=== PATIENT | female | born 1955 | race Caucasian/White ===

== ENCOUNTER 2019-05-10 15:41 | Outpatient (CLI) | payer MEDICARE ==
--- NOTE | 2019-06-07 15:13 | MMO ---
Bilateral MAMMO Bilat Screen [facility]. CLINICAL HISTORY: Patient is 63 years old and is seen for screening. The patient has the following family history of breast cancer: maternal grandmother, malignant (generic). The patient has no personal history of cancer. The patient has a history of right Excisional Biopsy more than 10 years ago - benign. VIEWS: The views performed were: bilateral craniocaudal with tomosynthesis and bilateral mediolateral oblique with tomosynthesis. This study has been interpreted with the assistance of computer-aided detection. MAMMOGRAM FINDINGS: There are scattered fibroglandular densities. There are benign appearing calcifications seen in both breasts. There are also vascular calcifications. There are no suspicious masses, suspicious calcifications, or new areas of architectural distortion. IMPRESSION: THERE IS NO MAMMOGRAPHIC EVIDENCE OF MALIGNANCY. A ROUTINE FOLLOW-UP MAMMOGRAM IN 1 YEAR IS RECOMMENDED. THE RESULTS OF THIS EXAM WERE SENT TO THE PATIENT. ACR BI-RADS Category 2 - Benign finding MAMMOGRAPHY NOTE: 1. A negative mammogram report should not delay a biopsy if a dominant of clinically suspicious mass is present. 2. Approximately 10% to 15% of breast cancers are not detected by mammography. 3. Adenosis and dense breasts may obscure an underlying neoplasm. Reported by: YUMI JACOBO MD Electonically Signed: [id number]
== END 2019-05-10 15:42 | disposition home or self-care (01) ==
LOC: BICMAMMO 15:41
PROVIDERS: ATTEND Family Medicine
DX: Z12.31 Encounter for screening mammogram for malignant neoplasm of breast (principal); Z80.3 Family history of malignant neoplasm of breast; Z91.89 Other specified personal risk factors, not elsewhere classified
CPT/HCPCS: 77063; 77067

== ENCOUNTER 2019-09-05 12:04 | Inpatient (IN) | payer MEDICARE ==
[2019-09-05 12:47] LABS: #Lymphocytes 0.8 thou/uL (1.20-3.40); #Monocytes 0.5 thou/uL (0.11-0.59); #Neutrophils 5.1 thou/uL (1.40-6.50); %Basophils 0.3 % (0.0-1.0); %Eosinophils 0.5 % (0.0-10.0); %Lymphocytes 12.2 % (21.0-51.0); %Monocytes 7.4 % (0.0-10.0); %Neutrophils 79.6 % (42.0-75.0); Hemoglobin 11.3 g/dL (12.0-16.0); Mean Corpuscular Hemoglobin 33.5 pg (27.0-31.0); Mean Platelet Volume 10.4 fL (7.4-10.4); Platelet Count 89 thou/uL (130-400); RBC Distribution Width 15.8 % (11.5-14.5); Red Blood Cell (RBC) Count 3.39 mill/uL (4.20-5.40); White Blood Cell (WBC) Count 6.4 thou/uL (4.8-10.8)
[2019-09-05 12:58] LABS: ALT (SGPT) 56 U/L (8-55); AST (SGOT) 170 U/L (5-34); Albumin 2.3 g/dL (3.4-4.8); Alkaline Phosphatase 362 U/L (40-110); Anion Gap 15 mmol/L (10-20); BUN (Urea Nitrogen) 17 mg/dL (9.8-20.1); Calc. Creatinine Clearance 0 mL/min (70-130); Calcium 10.6 mg/dL (7.8-10.44); Carbon Dioxide 30 mmol/L (23-31); Chloride 96 mmol/L (98-107); Estimated GFR-MDRD 21; Globulin 5.1 g/dL (2.4-3.5); Glucose 167 mg/dL (80-115); Lipase 74 U/L (8-78); Potassium 2.7 mmol/L (3.5-5.1); Protein, Total 7.4 g/dL (6.0-8.3); Sodium 138 mmol/L (136-145)
[2019-09-05 12:59] LABS: MDiff Complete? YES; Macrocytosis MODERATE=16-30 cells (100X) (0-5/hpf); Platelet Morphology Comment Appears Decreased; Polychromasia SLIGHT = 2-3 cells (100X) (0-2/hpf); Rouleaux Formation SLIGHT = 1-5 cells (100X) (None Seen); Target Cells SLIGHT = 2-5 cells (100X) (0-1/hpf)
[2019-09-05 13:04] LABS: Bilirubin, Total 29.1 mg/dL (0.2-1.2)
--- NOTE | 2019-09-05 13:05 | RAD ---
CHEST 1 VIEW: Date: 09/05/2019 HISTORY: Weakness, dizziness, intermittent shortness of breath. COMPARISON: 11/03/2016. FINDINGS: Heart size is normal. The lungs are clear. No confluent pneumonia, overt edema, or pleural effusion. IMPRESSION: No significant acute intrathoracic disease. Stable from prior study. POS: TPC
[2019-09-05] MEDS ORDERED: Cefepime 2 GM VIAL ONE (13:14)
[2019-09-05 13:16] LABS: CKMB 1.3 ng/mL (0-6.6)
[2019-09-05 14:19] LABS: Bilirubin Large (Negative); Blood, Urine Small (Negative); Glucose, Urine (Dipstick) 100 mg/dL (Negative); Leukocyte Trace (Negative); Nitrite Negative (Negative); Protein, Urine (Dipstick) 100 mg/dL (Neg-Trace)
--- NOTE | 2019-09-05 14:19 | CT ---
EXAM: ABDOMEN AND PELVIC CT SCAN WITHOUT IV CONTRAST: 09/05/19 HISTORY: Abdominal pain, weakness, dizziness, shortness of breath. COMPARISON: 10/18/18. FINDINGS: Linear stranding in the lung bases with some subpleural opacity changes probably in part related to dependent positioning. Fatty changes in the liver with borderline liver size. Minimal splenomegaly at 15 cm. Abnormally dila paxton left upper quadrant varices including a splenorenal shunt as well as some perigastric varices edith dence for portal hypertension. Small amount of ascites with some scattered diffuse omental fat strand ing. Somewhat distended gallbladder without gallstones or wall thickening or pericholecystic fat stra nding, stable from prior study. Evidence for an abdominal aortic aneurysm measuring 4.6 cm in size. N umerous bilateral renal calculi. 3.2 cm right renal cyst. No significant hydronephrosis although ther e appears to be a nonobstructing calculus, 0.5 x 0.8 cm in the left ureterovesicular junction region. No CT evidence for appendicitis. Stable fatty mass positioned somewhat in between the right gluteus minimus and gluteus medius muscles. There is some ectatic changes of the aortic bifurcation and pro ximal common iliac arteries bilaterally up to 2 cm of the left common iliac artery. IMPRESSION: 4.6 cm diameter abdominal aortic aneurysm, this appears minimally larger from the prior 10/18/18 study at which time it was approximately 4.3 cm in size. Numerous bilateral renal calculi. Nonobstructing left ureteral calculus at the ureterovesicular junction. Fatty liver with splenomegaly and evidence for portal hypertension and associated varices. Minimal as citic fluid as well as some omental fat stranding. Small fat containing umbilical hernia. Stable fatt y mass in the right gluteal muscle region. Other findings as above. POS: TPC
[2019-09-05 14:21] LABS: Clarity Clear (Clear)
[2019-09-05 14:23] LABS: Other Microscopic Description Less than 2 mL rec'd
[2019-09-05 15:26] LABS: INR-International Normal Ratio 1.7; PTT 40.8 SEC (22.9-36.1); Prothrombin Time 20.1 SEC (12.0-14.7)
[2019-09-05 16:10] LABS: Lactic Acid 2.3 mmol/L (0.5-2.2)
[2019-09-05 16:57] LABS: Troponin I 0.046 ng/mL (< 0.028)
[2019-09-05 18:25] VITALS: BMI 29.7
[2019-09-05 19:54] LABS: Troponin I 0.047 ng/mL (< 0.028)
[2019-09-05] MEDS ORDERED: Ondansetron ODT 4 MG TAB PO PRN (19:59)
--- NOTE | 2019-09-05 20:15 | PDOC.HHP ---
Hospitalist HPI - History of Present Illness weakness, jaundice History of Present Illness: This is a 64 year old female with history of alcoholism, hypertension who presented to the ER with jaundice. The patient's skin started turning yellow three weeks ago and it progressively got worst and her eyes turned icteric as well. She denies fevers or chills, but has been having decreased appetite and severe weakness with inability to get out of bed. This morning when the son made her eat, she vomited. She denies any abdominal pain. She denies constipation but had one loose stool today. She has been having painful urination for the past three weeks and red urine. . She reports history of hepatitis C in the past that was treated and cleared. She drinks one quart of alcohol daily for the past one year. The patient also reports having a pruritic rash all over her body for months and was on multiple medications as well as steroid cream. Eventually they saw a interface engineer who performed a punch biopsy and told them that she was being overmedicated and to stop all of her medications except for three of them. Patient reports improvement in her rash since then. ED Course: The patient presented to the ER with normal vitals. Labs sohwed WBC 6.5, lactate of 4, potassium of 2.7. Bilirubin was noted to be 29, AST, ALT 56, ALP 362. She was given 2L of fluid, IV vancomycin and cefepime. Repeat lactate was 2.3. Hospitalist ROS - Review of Systems Constitutional: reports: sweats (chronic hot flashes from menopause). denies: fever, chills Eyes: reports: other (icterus) ENT: denies: ear pain, nose pain Respiratory: reports: cough (intermittent dry cough) Cardiovascular: denies: chest pain, palpitations, orthopnea Gastrointestinal: reports: nausea, vomiting (x1). denies: abdominal pain, diarrhea Genitourinary: reports: dysuria. denies: frequency Musculoskeletal: denies: neck pain, shoulder pain, arm pain Skin: reports: rash (skin rash all over body which has improved) Neurological: denies: weakness, numbness, other Hospitalist History - Past Medical History Other Medical History: Hepatitis C Hypetension Heart aneurysm Abdominal Aortic aneurysm Arthritis - Past Surgical History Other Surgical History: Knee replacement - Family History Other Family History: Cancer Liver disease ALcoholism - Social History Smoking Status: Current every day smoker (smokes 4 cigarettes a day for 40 years ) Alcohol: reports: Heavy (one quart of alcohol daily for one year) Drugs: reports: marijuana (former marijuana user, not in the past month) Living Situation: With Family Occupation: disabled - Exam General Appearance: NAD, awake alert Eye: scleral icterus ENT: normocephalic atraumatic, no oropharyngeal lesions Neck: no JVD Heart: RRR, no murmur, no gallops, no rubs Respiratory: CTAB, no wheezes, no rales, no ronchi Gastrointestinal: soft, non-tender, non-distended, normal bowel sounds Extremities: no cyanosis, no clubbing, no edema Skin - other findings: excoriation on back. Maculopapular rash all over body which is healing Neurological: cranial nerve grossly intact, normal sensation to touch, no focal deficits, no new deficit Hospitalist Results - Labs Result Diagrams: 09/05/19 12:22 09/05/19 12:22 Lab results: WBC 6.4 thou/uL (4.8-10.8) 09/05/19 12:22 Hgb 11.3 g/dL (12.0-16.0) L 09/05/19 12:22 Hct 35.4 % (36.0-47.0) L 09/05/19 12:22 MCV 105.0 fL (78.0-98.0) H 09/05/19 12:22 Plt Count 89 thou/uL (130-400) L 09/05/19 12:22 Neutrophils % 79.6 % (42.0-75.0) H 09/05/19 12:22 Sodium 138 mmol/L (136-145) 09/05/19 12:22 Potassium 2.7 mmol/L (3.5-5.1) L* 09/05/19 12:22 Chloride 96 mmol/L (98-107) L 09/05/19 12:22 Carbon Dioxide 30 mmol/L (23-31) 09/05/19 12:22 BUN 17 mg/dL (9.8-20.1) 09/05/19 12:22 Creatinine 2.34 mg/dL (0.6-1.1) H 09/05/19 12:22 Glucose 167 mg/dL (80-115) H 09/05/19 12:22 Lactic Acid 2.3 mmol/L (0.5-2.2) H 09/05/19 15:24 Calcium 10.6 mg/dL (7.8-10.44) H 09/05/19 12:22 Total Bilirubin 29.1 mg/dL (0.2-1.2) H 09/05/19 12:22 AST 170 U/L (5-34) H 09/05/19 12:22 ALT 56 U/L (8-55) H 09/05/19 12:22 Alkaline Phosphatase 362 U/L (40-110) H 09/05/19 12:22 CK-MB (CK-2) 1.3 ng/mL (0-6.6) 09/05/19 12:22 Troponin I 0.047 ng/mL (< 0.028) H 09/05/19 19:15 B-Natriuretic Peptide 92.3 pg/mL (0-100) 09/05/19 12:22 Serum Total Protein 7.4 g/dL (6.0-8.3) 09/05/19 12:22 Albumin 2.3 g/dL (3.4-4.8) L 09/05/19 12:22 Lipase 74 U/L (8-78) 09/05/19 12:22 Urine Ketones 15 mg/dL (Negative) A 09/05/19 14:01 Urine Blood Small (Negative) A 09/05/19 14:01 Urine Nitrite Negative (Negative) 09/05/19 14:01 Ur Leukocyte Esterase Trace (Negative) H 09/05/19 14:01 Hospitalist H&P A/P - Plan Plan: Chest X ray: no significant disease CT abdomen: 4.6 cm abdominal aortic aneurysm, larger from prior study. Numerous bilateral renal calculi. Fatty changes in the liver. Minimal splenomegaly. Let upper quadrant varices including splenorenal shunt and perigastric varices for portal hypretension. EKG: sinus tachycardia with PVCS This is a 64 year old female with past medical history of alcoholism, hypertension who presented to the ER with jaundice, weakness, poor appetite, found to have liver failure #Acute liver failure - likely secondary to alcoholism vs drug induced #Fatty liver with portal hypertension #Gastric varices #History of hepatitis C - treated - MELD score of 33 with > 52% mortality. CT abdomen showed fatty liver, portal hypertension, and varices. Will place GI consult #Dysuria - UA unremarkable, will check urine culture - s/p vanc and cefepime in the ER, will order IV ceftriaxone #Acute Kidney injury #Lactic acidosis - likely from severe dehydration. Had improvement with IV fluids - will give gentle hydration for 1L. Repeat labs tomorrow #Hypokalemia - potassium 2.7, will give 40 meq potassium and recheck #Abdominal aortic aneurysm - noted to be 4.[address] abdomen #Right gluteal mass - noted on CT scan . Not palpable on exam #Bilateral renal calculi #Right renal cyst - asymptomatic, outpatient follow up Code status: full code
[2019-09-05] MEDS: Sodium Chloride 0.9% 1,000 ML IV SCH (20:22)
[2019-09-05] MEDS ORDERED: Potassium Chloride 20 MEQ TAB PO SCH (20:30)
[2019-09-05] MEDS: traMADol HCl 50 MG TAB PO PRN (20:47)
[2019-09-06 03:47] LABS: Lactic Acid 1.4 mmol/L (0.5-2.2)
[2019-09-06 03:49] LABS: ALT (SGPT) 43 U/L (8-55); AST (SGOT) 127 U/L (5-34); Albumin 1.8 g/dL (3.4-4.8); Alkaline Phosphatase 283 U/L (40-110); Anion Gap 9 mmol/L (10-20); BUN (Urea Nitrogen) 17 mg/dL (9.8-20.1); Bilirubin, Total 24.1 mg/dL (0.2-1.2); Calc. Creatinine Clearance 42 mL/min (70-130); Calcium 8.4 mg/dL (7.8-10.44); Carbon Dioxide 25 mmol/L (23-31); Chloride 107 mmol/L (98-107); Estimated GFR-MDRD 28; Glucose 130 mg/dL (80-115); Potassium 3.3 mmol/L (3.5-5.1); Protein, Total 5.8 g/dL (6.0-8.3); Sodium 138 mmol/L (136-145)
[2019-09-06] MEDS: Sodium Chloride 0.9% 1,000 ML IV SCH ×2 (05:59→18:28)
[2019-09-06] MEDS: cefTRIAXone\\ROCEPHIN 1 GM in Sodium Chloride 0.9% 100 ML IVPB SCH (06:01)
[2019-09-06] MEDS ORDERED: Potassium Chloride 20 MEQ TAB PO SCH (09:30)
[2019-09-06] MEDS: Lorazepam 0.5 MG TAB PO PRN ×2 (09:53→21:18)
[2019-09-06] MEDS: traMADol HCl 50 MG TAB PO PRN ×2 (09:53→22:11)
[2019-09-06] MEDS ORDERED: Thiamine 100 MG TAB PO SCH (11:30)
[2019-09-06] MEDS: Thiamine 100 MG TAB PO SCH (12:06)
--- NOTE | 2019-09-06 14:36 | PDOC.HOSPP ---
- Subjective Encounter Date: 09/06/19 Encounter Time: 12:00 non-verbal Subjective: The patient is doing better. She has no abdominal pain, mild nausea. No shortness of breath or chest pain. She is drowsy and anxious per nursing staff , required some ativan this morning - Objective Vital Signs & Weight: Vital Signs (12 hours) Temp Pulse Ox 09/06/19 12:00 98.8 F 09/06/19 08:00 100 09/06/19 07:00 98.9 F 09/06/19 04:00 98.3 F Weight Weight 189 lb 13.088 oz Most Recent Monitor Data Heart Rate from ECG 106 NIBP 99/51 NIBP BP-Mean 67 Respiration from ECG 20 SpO2 99 I&O: 09/05/19 09/06/19 09/07/19 06:59 06:59 06:59 Intake Total 834 770 Output Total 0 300 Balance 834 470 Result Diagrams: 09/05/19 12:22 09/06/19 03:13 Hospitalist ROS - Review of Systems Constitutional: denies: fever, chills - Medication Medications: Active Medications Generic Name Dose Route Start Last Admin Trade Name Freq PRN Reason Stop Dose Admin Sodium Chloride 1,000 mls @ 75 mls/hr 09/05/19 20:15 09/06/19 05:59 Normal Saline 0.9% IV 1,000 mls .[id number] JULIA Administration Ceftriaxone Sodium 1 gm/ 100 mls @ 200 mls/hr 09/06/19 07:00 09/06/19 06:01 Sodium Chloride IVPB 100 mls Q24HR JULIA Administration Lorazepam 0.5 mg 09/05/19 20:33 09/06/19 09:53 Ativan PO 0.5 mg Q4H PRN Administration Anxiety Thiamine HCl 100 mg 09/07/19 09:00 09/06/19 12:06 Thiamine PO 100 mg DAILY JUILA Administration Tramadol HCl 25 mg 09/05/19 20:01 09/06/19 09:53 Ultram PO 25 mg Q6H PRN Administration Moderate Pain (4-6) - Exam General Appearance: NAD, awake alert General - other findings: jaundiced Eye: PERRL, anicteric sclera ENT: normocephalic atraumatic, no oropharyngeal lesions Neck: no JVD Heart: RRR, no murmur, no gallops, no rubs Respiratory: CTAB, no wheezes, no rales, no ronchi Gastrointestinal: soft, non-distended Gastrointestinal - other findings: mild tenderness Extremities: no cyanosis, no clubbing, no edema Skin: normal turgor, no lesions, no rashes Neurological: cranial nerve grossly intact, normal sensation to touch, no focal deficits, no new deficit Hosp A/P - Plan Chest X ray: no significant disease CT abdomen: 4.6 cm abdominal aortic aneurysm, larger from prior study. Numerous bilateral renal calculi. Fatty changes in the liver. Minimal splenomegaly. Let upper quadrant varices including splenorenal shunt and perigastric varices for portal hypretension. EKG: sinus tachycardia with PVCS This is a 64 year old female with past medical history of alcoholism, hypertension who presented to the ER with jaundice, weakness, poor appetite, found to have liver failure #Acute liver failure - likely secondary to alcoholism vs drug induced #Fatty liver with portal hypertension #Gastric varices #History of hepatitis C - treated - MELD score of 33 with > 52% mortality. CT abdomen showed fatty liver, portal hypertension, and varices. - GI Consult pending - continue IV ceftriaxone for SBP prophylaxis #Dysuria - UA unremarkable, urine culture showed no growth - on ceftriaxone #Acute Kidney injury #Lactic acidosis - lactic acid normal - creatinine improved to 1.79, continue IV fluids #Hypokalemia - potassium improved to 3.3, give another 40 meq potassium and recheck #Abdominal aortic aneurysm - noted to be 4.[address] abdomen #Right gluteal mass - noted on CT scan . Not palpable on exam #Bilateral renal calculi #Right renal cyst - asymptomatic, outpatient follow up Code status: full code
[2019-09-06 15:22] LABS: Potassium 3.5 mmol/L (3.5-5.1)
--- NOTE | 2019-09-06 21:12 | CON ---
DATE OF CONSULTATION: 09/06/2019 REASON FOR CONSULTATION: Hyperbilirubinemia, acute liver dysfunction/failure. CONSULTING PROVIDER: April Marshall MD HISTORY OF PRESENT ILLNESS: The patient is a 64-year-old female with past medical history of chronic hepatitis C infection status post treatment, hypertension, abdominal aortic aneurysm, osteoarthritis, cardiac aneurysm, gastric ulcer with H pylori status post treatment, GERD, and alcoholism, presenting with complaints of yellowing skin. She said that she was in her usual state of health until approximately 2 to 3 weeks ago when she had increasing yellowing of her skin, systemic itching as well as the occurrence of a systemic type rash. She states that over the next 2 to 3 weeks, this progressively worsened and she was ultimately seen by mingle operator as an outpatient for the rash and given steroid creams in hopes that this was an allergic response. However, she discontinued a number of her outpatient medications and her rash resolved, but her jaundice continued to worsen in addition to the systemic itching. This jaundice and itching were associated with decreased appetite, nausea, vomiting, diarrhea, and severe generalized weakness with the patient unable to rise from her bed. With her progressively worsening weakness and jaundice, ultimately prompted her to seek healthcare assistance at the [facility] ER. While in the ER, she was noted to have a significant hyperbilirubinemia in addition to acute kidney injury and was ultimately admitted for further evaluation. Today, the patient states that she feels a little bit better but is still somewhat weak. During the course of the conversation, the patient was alert and oriented, but did exhibit decreased cognition as well as slurring of her speech. Upon speaking with the patient, she confirmed the above history and added that "they overdosed me on arthritis medications" resulting in yellowing of her skin. However, during the same time, the patient has been drinking approximately one quart of rum daily and has been doing so for years. She also endorsed increased abdominal distention, but no abdominal pain. Upon questioning the patient further, she states that she has had periods of time of alcohol cessation where she may have had tremors, but denies any overt seizures. Currently, she denies any fevers, chills, hematemesis, melena, hematochezia, abdominal pain, dysphagia, or odynophagia. REVIEW OF SYSTEMS: A 10-category review of systems was obtained with all responses negative except for the pertinent positives as listed in HPI. PAST MEDICAL HISTORY: As per HPI. PAST SURGICAL HISTORY: Knee replacement. FAMILY HISTORY: Alcoholism and chronic liver disease. SOCIAL HISTORY: Smokes approximately 1/4 pack per day for the last 40 years. Drinks one quart of rum daily for the last few years. Former marijuana user and endorses marijuana use with no recent use. OUTPATIENT MEDICATIONS: Reviewed. ALLERGIES: NO KNOWN DRUG ALLERGIES. PHYSICAL EXAMINATION: VITAL SIGNS: Temperature 98.7, pulse 99, blood pressure 114/61, respiratory rate 19, saturating 95% on room air. GENERAL: The patient was lying in bed, in no acute distress. Alert and oriented x3. Displayed slowed cognition and mild slurring of speech. HEENT: Normocephalic, atraumatic. NECK: Supple. Positive scleral icterus. No JVD. CARDIOVASCULAR: Regular rate and rhythm. 3/6 systolic murmur best heard at the left lower sternal border. No discernible gallops or rubs. RESPIRATORY: Clear to auscultation bilaterally with no discernible wheezes or rales. ABDOMEN: Normoactive bowel sounds. Soft, nontender, and nondistended. EXTREMITIES: No cyanosis, clubbing, or edema. BACK: A diffuse almost discoid red/purpuric rash seen primarily on her back, but also extending all over her body with mild excoriations that appear to be healing. LABORATORY DATA: CBC with a white blood cell count of 6.4, hemoglobin 11.3, hematocrit 35.4, platelets 89. INR 1.7. Chemistry with a sodium of 138, potassium 3.3, chloride 107, CO2 of 25, BUN 17, creatinine 1.79, glucose 130, AST 127, ALT 43, alkaline phosphatase 283, total bilirubin 24.1, albumin 1.8. Lactate 1.4, MELD sodium score calculated at 30. IMAGING DATA: CT of the abdomen and pelvis was obtained on September 05, 2019, which showed fatty liver with borderline splenomegaly, left upper quadrant varices with splenorenal shunt was also noted. A small amount of ascites was seen with abdominal aortic aneurysm measuring approximately 4.6 cm (increased from 4.3 cm) as well as a small fat containing umbilical hernia. Upon review of the patient's chart, there was also an EGD performed in February 2019, which showed mild esophagitis, mild gastric erythema, but no presence of gastric ulcer and no mention of esophageal or gastric varices at that time. ASSESSMENT AND PLAN: The patient is a 64-year-old female with past medical history of chronic hepatitis C infection status post treatment, hypertension, abdominal aortic aneurysm, osteoarthritis, cardiac aneurysm, gastric ulcer secondary to Helicobacter pylori status post treatment and eradication of Helicobacter pylori, gastroesophageal reflux disease, and chronic alcoholism, presenting with alcoholic hepatitis and probable cirrhosis of the liver. Alcoholic hepatitis. The patient is presenting with a longstanding history of alcohol use with laboratory values extending into 2016, showing elevated LFTs. However, during this admission, the patient is presenting with a significant elevation of AST when compared to ALT, in an approximate 3:1 ratio consistent with alcoholic hepatitis. When combined with her alcohol use of approximately one quart of rum daily at least for last year, does lend itself toward this diagnosis. However, with the patient's thrombocytopenia and splenomegaly with the presence of varices indicative of portal hypertension, she most likely has cirrhosis of the liver complicated by alcoholic hepatitis. At this point with more conservative measures, her LFTs are currently downtrending in addition to her bilirubin and lactic acid, indicating response to treatment. Given no significant change in 90-day mortality with the use of prednisolone versus placebo, I would hold on steroid therapy for now despite the fact that her Maddrey discriminant function is greater than 32. RECOMMENDATIONS: 1. Would continue with more conservative management with IV fluid support as you are doing. 2. Would continue to trend her LFTs and INR daily for evaluation of improving liver dysfunction. 3. Would continue to monitor the patient clinically for worsening hepatic encephalopathy, which may be a harbinger of imminent hepatic failure. 4. Would place the patient on an alcohol withdrawal protocol given her significant alcohol use in the past. 5. Strongly encourage alcohol cessation. 6. Would administer 100 mg of thiamine now and schedule for 100 mg daily in light of probable nutritional deficiency and to prevent Wernicke's encephalopathy. Cirrhosis. The patient is presenting with a history of probable cirrhosis given the presence of fatty liver on imaging in addition to borderline splenomegaly and the presence of varices in the left upper quadrant consistent with portal hypertension. She also has had chronic thrombocytopenia which also lends itself towards a diagnosis of portal hypertension and resultant cirrhosis most likely from alcohol abuse. Currently, she is presenting with decompensated disease with a small amount of ascites in addition to profound hyperbilirubinemia and resultant pruritus secondary to jaundice/hyperbilirubinemia. She does have an EGD from February 2019, which does not show the presence of esophageal or gastric varices, but may need to be repeated given decompensation of her current clinical status. Current CT is negative for the presence of hepatoma in light of chronic alcohol abuse in addition to cirrhosis, it could potentially generate her current clinical picture including severe hepatic dysfunction with possible hepatic failure, although her labs are currently responding to treatment thus far. RECOMMENDATIONS: 1. Would place the patient on cholestyramine 4 g b.i.d. as part of treatment for her cholestatic pruritus. 2. Would place the patient on 30 mL lactulose b.i.d. for probable hepatic encephalopathy. 3. Again, encourage complete alcohol cessation. 4. The patient will need repeat imaging of her liver in approximately 6 months for further screening for hepatocellular carcinoma. We will continue to follow. Please call with any questions. Job ID: [id number]
[2019-09-06] MEDS: Cholestyramine/Aspartame 4 gm Packet PO SCH (21:19)
[2019-09-07 05:55] LABS: INR-International Normal Ratio 2.1; Prothrombin Time 23.2 SEC (12.0-14.7)
[2019-09-07 06:00] LABS: #Eosinphils 0.1 thou/uL (0.0-0.7); #Lymphocytes 0.7 thou/uL (1.20-3.40); #Monocytes 0.4 thou/uL (0.11-0.59); #Neutrophils 2.6 thou/uL (1.40-6.50); %Basophils 0.6 % (0.0-1.0); %Eosinophils 2.4 % (0.0-10.0); %Lymphocytes 18.8 % (21.0-51.0); %Monocytes 9.4 % (0.0-10.0); %Neutrophils 68.8 % (42.0-75.0); Hemoglobin 9.4 g/dL (12.0-16.0); Mean Corpuscular HGB CONC 31.9 g/dL (32.0-36.0); Mean Corpuscular Hemoglobin 33.5 pg (27.0-31.0); Mean Platelet Volume 10.1 fL (7.4-10.4); Platelet Count 67 thou/uL (130-400); RBC Distribution Width 15.8 % (11.5-14.5); Red Blood Cell (RBC) Count 2.81 mill/uL (4.20-5.40); White Blood Cell (WBC) Count 3.7 thou/uL (4.8-10.8)
[2019-09-07 06:12] LABS: ALT (SGPT) 43 U/L (8-55); AST (SGOT) 131 U/L (5-34); Albumin 1.8 g/dL (3.4-4.8); Alkaline Phosphatase 265 U/L (40-110); Anion Gap 7 mmol/L (10-20); BUN (Urea Nitrogen) 16 mg/dL (9.8-20.1); Bilirubin, Total 24.6 mg/dL (0.2-1.2); Calc. Creatinine Clearance 49 mL/min (70-130); Calcium 8.2 mg/dL (7.8-10.44); Carbon Dioxide 26 mmol/L (23-31); Chloride 108 mmol/L (98-107); Estimated GFR-MDRD 34; Glucose 81 mg/dL (80-115); Protein, Total 5.8 g/dL (6.0-8.3); Sodium 138 mmol/L (136-145)
[2019-09-07] MEDS: Sodium Chloride 0.9% 1,000 ML IV SCH ×3 (06:13→22:45)
[2019-09-07] MEDS: cefTRIAXone\\ROCEPHIN 1 GM in Sodium Chloride 0.9% 100 ML IVPB SCH (06:14)
[2019-09-07] MEDS: Cholestyramine/Aspartame 4 gm Packet PO SCH ×2 (09:10→21:32)
[2019-09-07] MEDS: Thiamine 100 MG TAB PO SCH (09:10)
[2019-09-07] MEDS ORDERED: Potassium Chloride 20 MEQ TAB PO SCH (11:00)
[2019-09-07] MEDS ORDERED: prednisoLONE 10 MG ODT TAB PO SCH (11:45)
--- NOTE | 2019-09-07 13:34 | PDOC.HOSPP ---
- Subjective Encounter Date: 09/07/19 Encounter Time: 13:33 Subjective: F/u: alcoholic hepatitis The patient has mild abdominal pain. She has no nausea or vomiting. She has some jaundice still. She feels tired She is aware of the year being 2019, stated the day was Tuesday. She did have a bowel movement today Per GI, plan to start prednisolone - Objective Vital Signs & Weight: Vital Signs (12 hours) Temp Pulse Resp BP BP Pulse Ox 09/07/19 11:58 98.0 F 106 H 14 108/71 95 09/07/19 09:17 94 L 09/07/19 08:13 97.9 F 106 H 18 94/60 95 09/07/19 03:13 98.8 F 102 H 20 99/63 92 L Weight Weight 189 lb 13.088 oz Most Recent Monitor Data Heart Rate from ECG 99 NIBP 114/61 NIBP BP-Mean 78 Respiration from ECG 19 SpO2 99 I&O: 09/06/19 09/07/19 09/08/19 06:59 06:59 06:59 Intake Total 834 1835 Output Total 0 600 Balance 834 1235 Result Diagrams: 09/07/19 05:30 09/07/19 05:30 Hospitalist ROS - Review of Systems Constitutional: denies: fever, chills Respiratory: denies: cough, dry - Medication Medications: Active Medications Generic Name Dose Route Start Last Admin Trade Name Freq PRN Reason Stop Dose Admin Cholestyramine Resin 4 gm 09/06/19 22:00 09/07/19 09:10 Questran Light PO 4 gm 1000,2200 JULIA Administration Sodium Chloride 1,000 mls @ 75 mls/hr 09/05/19 20:15 09/07/19 12:15 Normal Saline 0.9% IV Not Given .[id number] JULIA Ceftriaxone Sodium 1 gm/ 100 mls @ 200 mls/hr 09/06/19 07:00 09/07/19 06:14 Sodium Chloride IVPB 100 mls Q24HR JULIA Administration Lorazepam 0.5 mg 09/05/19 20:33 09/06/19 21:18 Ativan PO 0.5 mg Q4H PRN Administration Anxiety Prednisolone 40 mg 09/07/19 11:45 09/07/19 12:57 Orapred Odt PO 09/07/19 13:45 40 mg NOW JULIA Administration Thiamine HCl 100 mg 09/07/19 09:00 09/07/19 09:10 Thiamine PO 100 mg DAILY JULIA Administration Tramadol HCl 25 mg 09/05/19 20:01 09/06/19 22:11 Ultram PO 25 mg Q6H PRN Administration Moderate Pain (4-6) - Exam General Appearance: NAD, awake alert General - other findings: jaundiced Eye: scleral icterus ENT: normocephalic atraumatic, no oropharyngeal lesions Neck: supple, symmetric, no JVD Heart: RRR, no murmur, no gallops, no rubs Respiratory: CTAB, no wheezes, no rales, no ronchi Gastrointestinal: soft, non-distended, normal bowel sounds Gastrointestinal - other findings: mild RUQ tenderness Extremities: no cyanosis, no clubbing, 1+ LE edema Skin: normal turgor Skin - other findings: significant excoriation on her back. Mild macular rash diffuse healing Neurological: cranial nerve grossly intact, normal sensation to touch, no focal deficits, no new deficit Musculoskeletal: normal tone, normal strength, no muscle wasting Hosp A/P - Plan Chest X ray: no significant disease CT abdomen: 4.6 cm abdominal aortic aneurysm, larger from prior study. Numerous bilateral renal calculi. Fatty changes in the liver. Minimal splenomegaly. Let upper quadrant varices including splenorenal shunt and perigastric varices for portal hypretension. Small amount of ascites EKG: sinus tachycardia with PVCS This is a 64 year old female with past medical history of alcoholism, hypertension who presented to the ER with jaundice, weakness, poor appetite, found to have liver failure #Acute alcoholic hepatitis #Fatty liver with portal hypertension/possible cirrhosis #Gastric varices #History of hepatitis C - treated - per GI , patient most likely has cirrhosis although imaging did not reflect given findings of varices and portal hypertnesion - plan to start prednisolone today - continue IV ceftriaxone for SBP prophylaxis. CT showed mild ascites #Dysuria - UA unremarkable, urine culture showed no growth - on ceftriaxone #Acute Kidney injury #Lactic acidosis - lactic acid normal - creatinine improved to 1.59, continue IV fluids #Hypokalemia - potassium 3.0, ordered another 40 meq potassium and recheck #Abdominal aortic aneurysm - noted to be 4.[address] abdomen #Right gluteal mass - noted on CT scan . Not palpable on exam #Bilateral renal calculi #Right renal cyst - asymptomatic, outpatient follow up Dispo: pending improvement in CAITLYN Code status: full code
--- NOTE | 2019-09-07 13:35 | PQF ---
DATE: 09-07-19 ATTN: DR. VAN FREEDMAN Please exercise your independent, professional judgment in responding to the clarification form. Clinical indicators are provided on the bottom of this form for your review Please check appropriate box(s) to clarify if the following diagnosis has been ruled in or ruled out: SEPTIC SHOCK [ ] Ruled in diagnosis [ ] Continue to treat [ ] Resolved [ X] Ruled out diagnosis [ ] Other diagnosis [ ] Unable to determine In addition, please specify: Present on Admission (POA): [ X ] Yes [ ] No [ ] Unable to determine For continuity of documentation, please document condition throughout progress notes and discharge summary. Thank You. CLINICAL INDICATORS - SIGNS / SYMPTOMS / LABS / RESULTS AND LOCATION IN MR ER DX: LIVER FAILURE, ALCOHOL ABUSE, SEPTIC SHOCK UNK SOURCE, THROMBOCYTOPENIA WBC: 09-07-19: 3.7 LACTIC ACID: 09-05-19: 4.0 09-05-19: 2.3 BP: ER: 80/49, 98/53, 94/60, 95/58, 94/52 PULSE: 09-07-19: 102, 106, 106 H&P 09-05-19: ACUTE LIVER FAILURE, FATTY LIVER WITH PORTAL HTN, GASTRIC VARICES, HX HEP C, DYSURIA, CAITLYN, HYPOKALEMIA, R GLUTEAL MASS, BILATERAL RENAL CALCULI, RIGHT RENAL CYST RISK FACTORS / RESULTS AND LOCATION IN MR H&P 09-05-19: ACUTE LIVER FAILURE, FATTY LIVER WITH PORTAL HTN, GASTRIC VARICES, HX HEP C, DYSURIA, CAITLYN, HYPOKALEMIA, R GLUTEAL MASS, BILATERAL RENAL CALCULI, RIGHT RENAL CYST BP: ER: 09-05-19: 80/49, 98/53, 94/60, 95/58, 94/52 TREATMENTS / RESULTS AND LOCATION IN MR: ER NOTED 09-05-19: NS IVF, VANCOMYCIN IV, CEFEPIME IV (This form is maintained as a part of the permanent medical record) 2014 [email or web address]. All Rights Reserved KENA [email or web address] Office: [phone] GREGORY
--- NOTE | 2019-09-07 15:11 | PRG ---
DATE OF SERVICE: 09/07/2019 REASON FOR CONSULTATION: Alcoholic hepatitis, acute liver dysfunction/failure. SUBJECTIVE: Since the institution of lactulose last night and this morning, she has had multiple bowel movements today with approximately 3 to 4 semi-solid liquid bowel movements over the last 12 hours. She adds that she does continue to have some mild abdominal pain, but is improving and she also notes that her cognition has improved as well. She continues to have significant jaundice of her skin, but feels that her rash is getting better. Otherwise, she denies any vomiting, fevers, chills, hematemesis, melena, hematochezia, odynophagia, or dysphagia. OBJECTIVE: VITAL SIGNS: Temperature 98, pulse 106, blood pressure 108/71, respiratory rate 14, saturating 95% on room air. GENERAL: The patient was lying in bed, in no acute distress. Alert and oriented x3. CARDIOVASCULAR: Tachycardic rate, but regular rhythm. RESPIRATORY: Clear to auscultation bilaterally. ABDOMEN: Normoactive bowel sounds. Soft, nontender, nondistended. EXTREMITIES: No cyanosis, clubbing, or edema. BACK: Diffuse almost discoid red/purpuric rash seen primarily on her back, but extending over her chest and proximal upper and lower extremities with mild excoriations that appear to be healing. LABORATORY DATA: CBC with a white blood cell count of 3.7, hemoglobin 9.4, hematocrit 29.6, platelets 67. INR 2.1. Chemistry with a sodium of 138, potassium 3, chloride 108, CO2 of 26, BUN 16, creatinine 1.52, glucose 81. AST 131, ALT 43, alkaline phosphatase 265. Total bilirubin 24.6. Albumin 1.8. IMAGING DATA: No current GI imaging is available for review. ASSESSMENT AND PLAN: The patient is a 64-year-old female with past medical history of chronic hepatitis C infection, status post treatment and clearance, hypertension, abdominal aortic aneurysm, osteoarthritis, cardiac aneurysm, gastric ulcer secondary to Helicobacter pylori, status post treatment and eradication, gastroesophageal reflux disease and chronic alcoholism presenting with alcoholic hepatitis and probable cirrhosis of the liver. Alcoholic hepatitis: The patient is presenting with a longstanding history of alcohol use, drinking approximately one quart of rum per day, now presenting with elevated LFTs in an approximate 3:1 ratio consistent with alcoholic hepatitis. She initially responded to more conservative management with IV fluid and dietary measures. However, she is now exhibiting an increasing INR, plateauing of her hyperbilirubinemia concerning for worsening liver function. Calculation of her MELD score at this time is approximately 30, which carries a 30% to 40% 90 day mortality risk. Given that she is not responding to more conservative management, she may be a candidate for steroids at this time, especially with her Maddrey discriminant function greater than 32. Recommendations: 1. Continue with more conservative management of IV fluids. 2. Advance diet as tolerated. 3. Continue to trend her LFTs and INR daily. 4. Monitoring of her liver function. 5. Would continue to monitor the patient clinically for worsening hepatic encephalopathy, which may be a harbinger of imminent hepatic failure. 6. Strongly encouraged alcohol cessation and continuation of the patient on an alcohol withdrawal protocol. 7. Continue with thiamine administration. 8. If the patient's liver function does continue to worsen, then transferring the patient to a higher level of care and/or referral for transplantation would be indicated. Cirrhosis: The patient is presenting with a history of probable cirrhosis given the presence of fatty liver on imaging, borderline splenomegaly, varices in the left upper quadrant and thrombocytopenia, all consistent with portal hypertension. At this time, the most likely etiology would be chronic alcohol abuse, but may have been due to fibrosis formation from chronic HCV that has since been treated and cleared. Currently, she is presenting with decompensated disease with a MELD score of 30 and Child-Conley classification B/C. Current CT imaging was negative for the presence of hepatoma in light of possible cirrhosis. Recommendations: 1. Continue cholestyramine 4 g b.i.d. for treatment of cholestatic pruritus. 2. Would decrease her lactulose to 30 mL once daily for probable hepatic encephalopathy and to decrease the number of bowel movement she has had with a goal of having 3 to 4 bowel movements per day. 3. Again encouraged complete alcohol cessation with placement on an alcohol withdrawal protocol. We will continue to follow. Please call with any questions. Dr. Colunga will be on-call this weekend. Please direct any questions to him. Job ID: [id number]
[2019-09-07] MEDS: Lorazepam 0.5 MG TAB PO PRN (19:49)
[2019-09-08] MEDS: cefTRIAXone\\ROCEPHIN 1 GM in Sodium Chloride 0.9% 100 ML IVPB SCH (06:16)
[2019-09-08 06:24] LABS: Mean Corpuscular HGB CONC 32.4 g/dL (32.0-36.0); Mean Corpuscular Hemoglobin 34.1 pg (27.0-31.0); Mean Platelet Volume 9.9 fL (7.4-10.4); Platelet Count 68 thou/uL (130-400); RBC Distribution Width 15.5 % (11.5-14.5); Red Blood Cell (RBC) Count 2.64 mill/uL (4.20-5.40); White Blood Cell (WBC) Count 4.9 thou/uL (4.8-10.8)
[2019-09-08 06:56] LABS: ALT (SGPT) 40 U/L (8-55); AST (SGOT) 117 U/L (5-34); Albumin 1.7 g/dL (3.4-4.8); Alkaline Phosphatase 253 U/L (40-110); Anion Gap 8 mmol/L (10-20); BUN (Urea Nitrogen) 18 mg/dL (9.8-20.1); Bilirubin, Total 23.9 mg/dL (0.2-1.2); Calc. Creatinine Clearance 53 mL/min (70-130); Calcium 7.5 mg/dL (7.8-10.44); Carbon Dioxide 22 mmol/L (23-31); Chloride 108 mmol/L (98-107); Estimated GFR-MDRD 37; Globulin 3.9 g/dL (2.4-3.5); Glucose 150 mg/dL (80-115); Potassium 3.7 mmol/L (3.5-5.1); Protein, Total 5.6 g/dL (6.0-8.3); Sodium 134 mmol/L (136-145)
[2019-09-08] MEDS: Thiamine 100 MG TAB PO SCH (09:06)
[2019-09-08] MEDS: prednisoLONE 10 MG ODT TAB PO SCH (09:07)
[2019-09-08] MEDS: Cholestyramine/Aspartame 4 gm Packet PO SCH ×2 (09:07→20:58)
--- NOTE | 2019-09-08 11:29 | EKG ---
Test Reason : Blood Pressure : / mmHG Vent. Rate : 111 BPM Atrial Rate : 111 BPM P-R Int : 152 ms QRS Dur : 090 ms QT Int : 344 ms P-R-T Axes : 057 021 022 degrees QTc Int : 467 ms Sinus tachycardia with Premature atrial complexes Possible Anterior infarct , age undetermined Abnormal ECG Confirmed by MIKE KENNEDY DO ([id number]), associate entertainment editor [place] ([id number]) on 09/08/2019 11:28:58 AM Referred By: Confirmed By:MIKE KENNEDY DO
[2019-09-08] MEDS: Sodium Chloride 0.9% 1,000 ML IV SCH (16:00)
--- NOTE | 2019-09-08 17:38 | PDOC.HOSPP ---
- Subjective Subjective: Seen and examined. Patient is very jaundiced, though the nurse tells me that this is improve from yesterday. Patient alert and oriented times three and has okay insight into clinical condition. Patient endorses drinking one bottle of wine prior to admission. Patient prior with hepatitis C who has undergone antiviral therapy. Patient requesting Xanax this a.m. Patient requested I call her family and gave consent for me to discuss all medical information, I contacted her brother Fausto at her request and gave him a status update. Fausto can be reached at [phone]. I was given for questions with patient and family, all answered in detail. - Objective Vital Signs & Weight: Vital Signs (12 hours) Temp Pulse Resp BP BP Pulse Ox 09/08/19 16:00 97.7 F 81 20 143/84 H 93 L 09/08/19 12:00 97.8 F 84 20 106/69 92 L 09/08/19 08:00 97.3 F L 101 H 20 121/73 121/73 95 Weight Weight 189 lb 13.088 oz Most Recent Monitor Data Heart Rate from ECG 99 NIBP 114/61 NIBP BP-Mean 78 Respiration from ECG 19 SpO2 99 I&O: 09/07/19 09/08/19 09/09/19 06:59 06:59 07:59 Intake Total 1835 3400 Output Total 600 Balance 1235 3400 Result Diagrams: 09/08/19 05:53 09/08/19 05:53 Radiology Reviewed by me: Yes Hospitalist ROS - Review of Systems All other systems reviewed; all pertinent +/- noted in HPI/Subj - Medication Medications: Active Medications Generic Name Dose Route Start Last Admin Trade Name Freq PRN Reason Stop Dose Admin Cholestyramine Resin 4 gm 09/06/19 22:00 09/08/19 09:07 Questran Light PO 4 gm 1000,2200 JULIA Administration Sodium Chloride 1,000 mls @ 75 mls/hr 09/05/19 20:15 09/07/19 22:45 Normal Saline 0.9% IV 1,000 mls .[id number] JULIA Administration Ceftriaxone Sodium 1 gm/ 100 mls @ 200 mls/hr 09/06/19 07:00 09/08/19 06:16 Sodium Chloride IVPB 100 mls Q24HR JULIA Administration Lactulose 20 gm 09/08/19 09:00 09/08/19 09:06 Lactulose PO 20 gm DAILY JULIA Administration Lorazepam 0.5 mg 09/05/19 20:33 09/07/19 19:49 Ativan PO 0.5 mg Q4H PRN Administration Anxiety Prednisolone 40 mg 09/08/19 09:00 09/08/19 09:07 Orapred Odt PO 40 mg DAILY JULIA Administration Thiamine HCl 100 mg 09/07/19 09:00 09/08/19 09:06 Thiamine PO 100 mg DAILY JULIA Administration Tramadol HCl 25 mg 09/05/19 20:01 09/06/19 22:11 Ultram PO 25 mg Q6H PRN Administration Moderate Pain (4-6) - Exam General Appearance: NAD, awake alert Eye: anicteric sclera ENT: normocephalic atraumatic, moist mucosa Neck: supple, symmetric, no lymphadenopathy Heart: no murmur, no gallops, no rubs Respiratory: CTAB, no wheezes, no rales, no ronchi, normal chest expansion, no tachypnea Gastrointestinal: soft, non-tender, non-distended, no guarding, no rigidity Extremities: no edema Skin: no lesions, no rashes Neurological: cranial nerve grossly intact, no focal deficits Musculoskeletal: generalized weakness Psychiatric: normal affect, normal behavior, A&O x 3 Hosp A/P (1) Alcohol abuse Code(s): F10.10 - ALCOHOL ABUSE, UNCOMPLICATED Status: Acute (2) Jaundice Code(s): R17 - UNSPECIFIED JAUNDICE Status: Acute (3) Liver failure Status: Acute (4) Coagulopathy Status: Acute (5) CAITLYN (acute kidney injury) Code(s): N17.9 - ACUTE KIDNEY FAILURE, UNSPECIFIED Status: Acute (6) Transaminitis Code(s): R74.0 - NONSPEC ELEV OF LEVELS OF TRANSAMNS & LACTIC ACID DEHYDRGNSE Status: Acute (7) Hepatitis C Code(s): B19.20 - UNSPECIFIED VIRAL HEPATITIS C WITHOUT HEPATIC COMA Status: Acute (8) Alcoholic hepatitis Code(s): K70.10 - ALCOHOLIC HEPATITIS WITHOUT ASCITES Status: Acute - Plan Plan: medical unit gastroenterology consultation, recommendations appreciated prednisolone for alcoholic hepatitis lactulose for elevated ammonia cholestyramine for diarrhea alcohol abstinence status post hepatitis C treatment in the outpatient setting monitor for signs of acute alcohol withdrawal, this morning she has no asterixis or other signs of acute alcohol withdrawal Ativan as needed for alcohol withdrawal alcohol withdrawal protocol, ASE protocol continue home medications as able blood pressure control blood sugar control G.I. prophylaxis DVT prophylaxis
[2019-09-08] MEDS: Lorazepam 0.5 MG TAB PO PRN (20:58)
[2019-09-08] MEDS: traMADol HCl 50 MG TAB PO PRN (21:05)
[2019-09-09] MEDS: cefTRIAXone\\ROCEPHIN 1 GM in Sodium Chloride 0.9% 100 ML IVPB SCH (06:32)
[2019-09-09] MEDS: Thiamine 100 MG TAB PO SCH (07:58)
[2019-09-09] MEDS: prednisoLONE 10 MG ODT TAB PO SCH (08:03)
[2019-09-09] MEDS: Lorazepam 0.5 MG TAB PO PRN ×2 (10:22→21:41)
[2019-09-09] MEDS: Cholestyramine/Aspartame 4 gm Packet PO SCH ×2 (11:53→21:41)
[2019-09-09 12:34] LABS: #Lymphocytes 1.3 thou/uL (1.20-3.40); #Monocytes 0.9 thou/uL (0.11-0.59); #Neutrophils 7.8 thou/uL (1.40-6.50); %Basophils 0.1 % (0.0-1.0); %Eosinophils 0.3 % (0.0-10.0); %Lymphocytes 13.1 % (21.0-51.0); %Monocytes 8.8 % (0.0-10.0); %Neutrophils 77.7 % (42.0-75.0); Hemoglobin 10.5 g/dL (12.0-16.0); Mean Corpuscular HGB CONC 32.7 g/dL (32.0-36.0); Mean Corpuscular Hemoglobin 34.1 pg (27.0-31.0); Mean Platelet Volume 9.4 fL (7.4-10.4); Platelet Count 96 thou/uL (130-400); RBC Distribution Width 15.5 % (11.5-14.5); Red Blood Cell (RBC) Count 3.07 mill/uL (4.20-5.40); White Blood Cell (WBC) Count 10.1 thou/uL (4.8-10.8)
[2019-09-09 12:49] LABS: ALT (SGPT) 45 U/L (8-55); AST (SGOT) 119 U/L (5-34); Alkaline Phosphatase 263 U/L (40-110); Anion Gap 11 mmol/L (10-20); BUN (Urea Nitrogen) 19 mg/dL (9.8-20.1); Calc. Creatinine Clearance 57 mL/min (70-130); Calcium 7.5 mg/dL (7.8-10.44); Carbon Dioxide 20 mmol/L (23-31); Chloride 108 mmol/L (98-107); Estimated GFR-MDRD 40; Globulin 4.5 g/dL (2.4-3.5); Glucose 111 mg/dL (80-115); Potassium 3.4 mmol/L (3.5-5.1); Protein, Total 6.5 g/dL (6.0-8.3); Sodium 136 mmol/L (136-145)
[2019-09-09 13:00] LABS: Bilirubin, Total 26.9 mg/dL (0.2-1.2)
[2019-09-09] MEDS ORDERED: hydrOXYzine 25 MG TAB PO PRN (14:45)
--- NOTE | 2019-09-09 14:50 | PDOC.HOSPP ---
- Subjective Subjective: Patient more alert and awake. Setting up in the bed, breathing comfortably on room air. Patient answering questions more quickly today. Patient's significant other and son are at bedside and able to aid in history. All current clinical conditions were addressed. Anxiety issues discussed, medications adjusted. Avoid Xanax and Ativan. Time was given for questions, all answered in detail. Patient and family are happy with plan of care. - Objective Vital Signs & Weight: Vital Signs (12 hours) Temp Pulse Resp BP Pulse Ox 09/09/19 11:54 98.0 F 75 18 128/82 93 L 09/09/19 08:00 94 L 09/09/19 07:45 97.9 F 76 16 109/70 94 L 09/09/19 04:00 97.8 F 82 18 129/78 94 L Weight Weight 189 lb 13.088 oz Most Recent Monitor Data Heart Rate from ECG 99 NIBP 114/61 NIBP BP-Mean 78 Respiration from ECG 19 SpO2 99 I&O: 09/08/19 09/09/19 09/10/19 05:59 06:59 06:59 Intake Total 480 Balance 480 Result Diagrams: 09/09/19 12:17 09/09/19 12:17 Radiology Reviewed by me: Yes Hospitalist ROS - Review of Systems All other systems reviewed; all pertinent +/- noted in HPI/Subj - Medication Medications: Active Medications Generic Name Dose Route Start Last Admin Trade Name Freq PRN Reason Stop Dose Admin Cholestyramine Resin 4 gm 09/06/19 22:00 09/09/19 11:53 Questran Light PO 4 gm 1000,2200 JULIA Administration Ceftriaxone Sodium 1 gm/ 100 mls @ 200 mls/hr 09/06/19 07:00 09/09/19 06:32 Sodium Chloride IVPB 100 mls Q24HR JULIA Administration Lactulose 20 gm 09/08/19 09:00 09/09/19 07:58 Lactulose PO 20 gm DAILY JULIA Administration Lorazepam 0.5 mg 09/05/19 20:33 09/09/19 10:22 Ativan PO 0.5 mg Q4H PRN Administration Anxiety Prednisolone 40 mg 09/08/19 09:00 09/09/19 08:03 Orapred Odt PO 40 mg DAILY JULIA Administration Sodium Chloride 10 ml 09/05/19 20:06 09/09/19 08:03 Flush - Normal Saline IVF 10 ml PRN PRN Administration Saline Flush Thiamine HCl 100 mg 09/07/19 09:00 09/09/19 07:58 Thiamine PO 100 mg DAILY JULIA Administration Tramadol HCl 25 mg 09/05/19 20:01 09/08/19 21:05 Ultram PO 25 mg Q6H PRN Administration Moderate Pain (4-6) - Exam General Appearance: NAD, awake alert Eye: scleral icterus ENT: normocephalic atraumatic, moist mucosa Neck: supple, symmetric, no lymphadenopathy Heart: no murmur, no gallops, no rubs Respiratory: CTAB, no wheezes, no rales, no ronchi, normal chest expansion Gastrointestinal: soft, non-tender, no guarding, no rigidity, distended (mild) Extremities: 1+ LE edema Skin - other findings: Significant whole body rash, improved per patient and family. Sig. jaundice Neurological: cranial nerve grossly intact, no focal deficits Musculoskeletal: generalized weakness Psychiatric: normal behavior, A&O x 3 Hosp A/P (1) Alcohol abuse Code(s): F10.10 - ALCOHOL ABUSE, UNCOMPLICATED Status: Acute (2) Jaundice Code(s): R17 - UNSPECIFIED JAUNDICE Status: Acute (3) Liver failure Status: Acute (4) Coagulopathy Status: Acute (5) CAITLYN (acute kidney injury) Code(s): N17.9 - ACUTE KIDNEY FAILURE, UNSPECIFIED Status: Acute (6) Transaminitis Code(s): R74.0 - NONSPEC ELEV OF LEVELS OF TRANSAMNS & LACTIC ACID DEHYDRGNSE Status: Acute (7) Hepatitis C Code(s): B19.20 - UNSPECIFIED VIRAL HEPATITIS C WITHOUT HEPATIC COMA Status: Acute (8) Alcoholic hepatitis Code(s): K70.10 - ALCOHOLIC HEPATITIS WITHOUT ASCITES Status: Acute - Plan Plan: medical unit gastroenterology consultation, recommendations appreciated prednisolone for alcoholic hepatitis lactulose for elevated ammonia cholestyramine for diarrhea alcohol abstinence status post hepatitis C treatment in the outpatient setting monitor for signs of acute alcohol withdrawal, this morning she has no asterixis or other signs of acute alcohol withdrawal Ativan as needed for alcohol withdrawal alcohol withdrawal protocol, ASE protocol Depression medications/ anxiety medications adjusted continue home medications as able blood pressure control blood sugar control G.I. prophylaxis DVT prophylaxis
[2019-09-09] MEDS: traMADol HCl 50 MG TAB PO PRN (21:39)
[2019-09-10] MEDS: traMADol HCl 50 MG TAB PO PRN (05:39)
[2019-09-10] MEDS: Lorazepam 0.5 MG TAB PO PRN ×2 (05:40→17:29)
[2019-09-10 05:51] LABS: #Eosinphils 0.1 thou/uL (0.0-0.7); #Lymphocytes 2.5 thou/uL (1.20-3.40); #Monocytes 1.3 thou/uL (0.11-0.59); #Neutrophils 5.7 thou/uL (1.40-6.50); %Basophils 0.3 % (0.0-1.0); %Eosinophils 1.2 % (0.0-10.0); %Lymphocytes 25.3 % (21.0-51.0); %Monocytes 13.8 % (0.0-10.0); %Neutrophils 59.3 % (42.0-75.0); Hemoglobin 10.5 g/dL (12.0-16.0); Mean Corpuscular HGB CONC 33.1 g/dL (32.0-36.0); Mean Corpuscular Hemoglobin 34.5 pg (27.0-31.0); Mean Platelet Volume 9.6 fL (7.4-10.4); Platelet Count 107 thou/uL (130-400); RBC Distribution Width 15.6 % (11.5-14.5); Red Blood Cell (RBC) Count 3.04 mill/uL (4.20-5.40); White Blood Cell (WBC) Count 9.7 thou/uL (4.8-10.8)
[2019-09-10] MEDS: cefTRIAXone\\ROCEPHIN 1 GM in Sodium Chloride 0.9% 100 ML IVPB SCH (06:07)
[2019-09-10 06:24] LABS: ALT (SGPT) 51 U/L (8-55); AST (SGOT) 160 U/L (5-34); Albumin 2.1 g/dL (3.4-4.8); Alkaline Phosphatase 262 U/L (40-110); Anion Gap 10 mmol/L (10-20); BUN (Urea Nitrogen) 18 mg/dL (9.8-20.1); Bilirubin, Total 27.7 mg/dL (0.2-1.2); Calc. Creatinine Clearance 58 mL/min (70-130); Calcium 7.4 mg/dL (7.8-10.44); Carbon Dioxide 19 mmol/L (23-31); Chloride 109 mmol/L (98-107); Estimated GFR-MDRD 41; Globulin 4.5 g/dL (2.4-3.5); Glucose 76 mg/dL (80-115); Protein, Total 6.6 g/dL (6.0-8.3); Sodium 135 mmol/L (136-145)
--- NOTE | 2019-09-10 07:41 | PRG ---
DATE OF SERVICE: 09/08/2019 SUBJECTIVE: This is a 64-year-old female with chronic alcohol abuse with development of alcoholic hepatitis and also liver cirrhosis. The patient is known to me from before. The patient was seen by me because of chronic hepatitis C and was treated with antiviral therapy. Her hep C RNA came back negative. The patient had seen me 2 years ago and had not come back to me for followup visit. The patient had previous history of chronic alcohol abuse and drinks constantly. The patient presents to the ER because of deep jaundice, generalized weakness, and fatigue. The admitting lab shows bilirubin level of 24, AST 127, ALT 43, alkaline phosphatase 283. The bilirubin level is slightly dropped to 23.9 today and liver enzymes remain elevated. She has been tolerating prednisone started by Dr. Alexandru Paredes yesterday. She is clinically getting better. She has no abdominal pain, no nausea, no vomiting. She complains of fatigue and generalized weakness and anorexia. PHYSICAL EXAMINATION: GENERAL: She is obese, appears comfortable. She is deeply jaundiced. VITAL SIGNS: Afebrile. Pulse is 84, blood pressure 106/96. CARDIOVASCULAR: First and second heart sounds heard. LUNGS: Clear to auscultation. ABDOMEN: Distended. Abdomen is nontender. Bowel sounds are normal. MEDICATIONS: Reviewed. CLINICAL IMPRESSION: 1. Chronic alcohol abuse, liver cirrhosis - alcoholic hepatitis. 2. Chronic hepatitis C status post treatment. 3. Obesity. 4. Markedly prolonged due to alcoholic liver disease. RECOMMENDATIONS: 1. Continue prednisone. Continue symptomatic treatment. 2. Followup LFTs. I had a long talk with Ms. Looney. I explained to her to stop drinking completely. She explained that there is a possibility her liver Job ID: [id number]
[2019-09-10 07:47] VITALS: BP 111/72; TEMP 98.2
--- NOTE | 2019-09-10 08:17 | PRG ---
DATE OF SERVICE: 09/09/2019 SUBJECTIVE: This is a 64-year-old female with liver cirrhosis-alcoholic hepatitis. The patient has had hep C before and was treated with antibiotic therapy. Her HCV RNA came back negative. She had not seen me in the last 2 years. She presented with jaundice, abdominal bloating, swelling. She has been on prednisone over the last 2 days and also on lactulose and vitamins. She is making good steady progress. She is feeling a whole lot better. She is awake, alert, oriented to time, place, and person. She is jaundiced. OBJECTIVE: VITAL SIGNS: Afebrile, pulse is 75, and blood pressure 128/82. CARDIOVASCULAR SYSTEM: First and second heart sounds normal. LUNGS: Clear to auscultation. ABDOMEN: Mildly distended. Abdomen is soft and nontender. No organomegaly. No masses. LABORATORY DATA: WBC count 10.1, hemoglobin 10.5, hematocrit 32. Chem 7 is normal. Her bilirubin today is 26.9, AST 119, ALT 45, alkaline phosphatase 260, albumin 2. RECOMMENDATION: 1. Continue lactulose. 2. Continue prednisone. 3. May consider stopping Questran lactulose to promote diarrhea and . If she does well, she can probably go home tomorrow on tapering dose of prednisone and she will come back to see me in 2 weeks. Job ID: [id number]
[2019-09-10] MEDS: Thiamine 100 MG TAB PO SCH (08:58)
[2019-09-10] MEDS: prednisoLONE 10 MG ODT TAB PO SCH (08:58)
[2019-09-10] MEDS ORDERED: Folic Acid 1 MG TAB PO SCH (09:00)
[2019-09-10] MEDS: Cholestyramine/Aspartame 4 gm Packet PO SCH (10:50)
--- NOTE | 2019-09-11 06:36 | DIS ---
DATE OF ADMISSION: 09/05/2019 DATE OF DISCHARGE: 09/10/2019 REASON FOR HOSPITALIZATION: Generalized weakness and yellowing of the skin. SIGNIFICANT FINDINGS: The patient was found to have acute alcoholic hepatitis. PROCEDURES PERFORMED AND TREATMENTS RENDERED: The patient presented to [facility] in [place], [place] on 09/05/2019 - please see full history and physical for details. The patient was seen and evaluated by Gastroenterology, please see full consultation notes and progress notes for details. The patient was diagnosed with acute alcoholic hepatitis, and she was started on all appropriate therapy by Gastroenterology, and this was titrated appropriately throughout her hospitalization. The patient with a prior diagnosis of hepatitis C, she is status post eradication in the outpatient setting. The patient had alcohol withdrawal protocol, and she did not have any complications of alcohol withdrawal and was seizure-free throughout her hospitalization. As the patient's clinical stay progressed, she improved daily. I evaluated the patient on 09/05/2019, and she is doing quite well. The patient is breathing comfortably on room air. She is not having any abdominal pain. She is tolerating a diet. She is moving her bowels. I have recruited the patient's family including her brother from out of town and talking with him on the telephone, the patient's son, and the patient's significant other, and had a family meeting and discussed the critical nature of this patient's illness. I explicitly informed all of them that if the patient continues to drink, she will likely in the near future. The patient has demonstrated understanding of the severity of her illness and desires sobriety. The patient's family are looking into outpatient alcoholics anonymous groups and states that they will keep her off alcohol. Alcoholic hepatitis regimen and alcoholic regimen were prescribed and sent to the patient's preferred pharmacy, these medications were selected by Gastroenterology. The patient was recommended safe for discharge by Gastroenterology with close followup with Dr. Clounga in the outpatient clinic in the next 1 to 2 weeks. The patient recommended to follow up with primary care physician in the next 5 to 7 days. The patient recommended to abstain strictly from alcohol, even one drop can be lethal to her. The patient understands these risks and states that she desires sobriety and she will quit drinking. CONDITION ON DISCHARGE: Stable. SPECIFIC INSTRUCTIONS FOR THE PATIENT/FAMILY: 1. Abstain from alcohol completely, return to acute care hospital immediately if she has even one drop of alcohol. 2. The patient recommended to take all medications as directed, to be re-evaluated by primary care physician and Gastroenterology in the outpatient setting in the upcoming appointments. 3. The patient recommended to follow up with primary care physician in the next 5 to 7 days. 4. The patient recommended to follow up with Gastroenterology in the next 1 to 2 weeks. 5. The patient recommended to follow up with alcoholics anonymous and have daily meetings. 6. The patient recommended to return to acute care hospital immediately if signs or symptoms return, worsen, or any other new symptoms occur. 7. The patient was recommended to return to acute care hospital immediately if she is unable to comply with any of the previously-mentioned steps. DISCHARGE MEDICATIONS: 1. Prednisone 10 mg with an extended taper, please see full taper for details. 2. Atarax 25 mg one tablet p.o. q.4 hours p.r.n. anxiety. 3. Thiamine 100 mg one tablet p.o. daily. 4. Zofran 4 mg one tablet p.o. q.6 hours p.r.n. nausea and vomiting. 5. Nicotine patch 14 mg transdermal daily. 6. Lactulose 20 mg liquid p.o. b.i.d., hold a single dose for loose stools. 7. Folic acid 1 mg one tablet p.o. daily. 8. Duloxetine 20 mg one tablet p.o. b.i.d. TIME SPENT: Greater than 35 minutes spent coordinating care and discharge process for this patient. Job ID: [id number]
--- NOTE | 2019-09-12 06:05 | PQF ---
QUEENIE JAIMES ERIK [id number] CLINICAL DOCUMENTATION CLARIFICATION FORM: POST DISCHARGE Addendum to original discharge summary date: ____ Late entry note date: __ DATE:09/12/2019 ATTN: Jefry Moscoso Please exercise your independent, professional judgment in responding to the clarification form. Clinical indicators are provided on the bottom of this form for your review Please check appropriate box(s) to clarify if the following diagnosis has been ruled in or ruled out: Acute Liver Failure [ XX ] Ruled in diagnosis [ ] Continue to treat [ ] Resolved [ ] Ruled out diagnosis [ ] Cannot rule out diagnosis [ ] Other diagnosis [ ] Unable to determine For continuity of documentation, please document condition throughout progress notes and discharge summary. Thank You. CLINICAL INDICATORS - SIGNS / SYMPTOMS / LABS Laboratory 09/05 Potassium 3.3, Anion Gap 9, Creatinine 1.79, Glucose 130, Lactic Acid 2.3, Total bilirubin 24.1. AST 127, ALT 43, Alkaline Phosphatase 283 , Albumin 1.8, Globulin 4.0, Albumin/Globulin ratio 0.5 H&P p1 09/04 Dr Marshall Presented to the ER with Jaundice. Pt skin started turning yellow three weeks ago and it progressively got worst and her eyes turned icteric as well H&P p1 09/04 redd Marshall She reports history of hepatitis C in the past that was treated and cleared. She drinks one quart of alcohol daily for the past one year H&P p3 09/04 Dr Marshall Acute liver failure likely secondary to alcoholism vs drug induced Consult p3 09/05 Dr Paredes In addition to cirrhosis, it could potentially generate her current clinical picture including severe hepatic dysfunction with possible hepatic failure, although her labs are currently responding to treatment thus far Consult p3 3 Dr Marshall presence of varices indicative of portal hypertension, she most likely has cirrhosis of the liver complicated by alcoholic hepatitis RISK FACTORS H&P p1 03/04 64 year-old female H&P p1 03/04 Alcoholism H&P p1 03/04 HTN H&P p1 03/04 History of Hepatitis C H&P p2 03/04 Current every day smoker (Smokes 4 cigarettes a day for 40 years) H&P p3 03/04 Gastric Varices H&P p3 03/04 CAITLYN H&P p3 03/04 Hypokalemia H&P p3 03/04 Lactic acidosis DS p1 09/09 Acute alcoholic hepatitis TREATMENTS SEP 03 IVF NS 1L SEP 03 K-DUr 40meq po SEP 03 Lactulose 20mg po BID SEP 03 IV Cefriaxone 1gm SEP 03 Thiamine 100mg po GE consult 09/[address] abdomen ordered (This form is maintained as a part of the permanent medical record) 2014 [employer], [employer]. All Rights Reserved [email or web address]
== END 2019-09-10 17:44 | disposition home or self-care (01) | DRG 432 ==
LOC: ERS 12:04 → CCU 18:14 → T4-A 09-06 17:23
PROVIDERS: ADMIT Internal Medicine; ATTEND Internal Medicine
DX: K70.10 Alcoholic hepatitis without ascites (principal); K72.00 Acute and subacute hepatic failure without coma; K76.6 Portal hypertension; N17.9 Acute kidney failure, unspecified; E87.2 Acidosis; F10.288 Alcohol dependence with other alcohol-induced disorder; D68.9 Coagulation defect, unspecified; Z79.899 Other long term (current) drug therapy; F17.210 Nicotine dependence, cigarettes, uncomplicated; E86.0 Dehydration; E87.6 Hypokalemia; I71.4 Abdominal aortic aneurysm, without rupture; I86.4 Gastric varices; N28.1 Cyst of kidney, acquired; N20.0 Calculus of kidney; I10 Essential (primary) hypertension; M19.91 Primary osteoarthritis, unspecified site; K21.9 Gastro-esophageal reflux disease without esophagitis; Z96.659 Presence of unspecified artificial knee joint; K70.30 Alcoholic cirrhosis of liver without ascites; E66.9 Obesity, unspecified; Z68.29 Body mass index [BMI] 29.0-29.9, adult; Z87.442 Personal history of urinary calculi
CPT/HCPCS: 36415; 51701; 71045; 74176; 80053; 81003; 81015; 82150; 82553; 82607; 82746; 83605; 83690; 83880; 84484; 85025; 85027; 85610; 85730; 87040; 87086; 93005; 93306; 96361; 96365; 96366; 99292; J0692; J0696; J3370; J3490; J7050; J7510

== ENCOUNTER 2019-09-15 12:54 | Inpatient (IN) | payer MEDICARE ==
[2019-09-15 13:48] LABS: Hemoglobin 10.7 g/dL (12.0-16.0); Mean Corpuscular HGB CONC 32.3 g/dL (32.0-36.0); Mean Platelet Volume 9.3 fL (7.4-10.4); Platelet Count 118 thou/uL (130-400); RBC Distribution Width 15.9 % (11.5-14.5); Red Blood Cell (RBC) Count 3.14 mill/uL (4.20-5.40)
[2019-09-15 13:49] LABS: #Eosinphils 0.1 thou/uL (0.0-0.7); #Lymphocytes 1.7 thou/uL (1.20-3.40); #Monocytes 1.4 thou/uL (0.11-0.59); #Neutrophils 10.8 thou/uL (1.40-6.50); %Basophils 0.2 % (0.0-1.0); %Eosinophils 0.5 % (0.0-10.0); %Lymphocytes 12.4 % (21.0-51.0); %Monocytes 9.8 % (0.0-10.0)
[2019-09-15 13:53] LABS: PTT 34.3 SEC (22.9-36.1); Prothrombin Time 22.6 SEC (12.0-14.7)
[2019-09-15 14:10] LABS: MDiff Complete? YES; Macrocytosis SLIGHT = 6-15 cells (100X) (0-5/hpf); Ovalocytes SLIGHT = 2-5 cells (100X) (0-1/hpf); Platelet Morphology Comment Appears Decreased; Polychromasia SLIGHT = 2-3 cells (100X) (0-2/hpf); Schistocytes SLIGHT = 2-5 cells (100X) (0-1/hpf); Target Cells SLIGHT = 2-5 cells (100X) (0-1/hpf); Tear Drops SLIGHT = 2-5 cells (100X) (0-1/hpf)
[2019-09-15 14:17] LABS: ALT (SGPT) 76 U/L (8-55); AST (SGOT) 128 U/L (5-34); Albumin 2.3 g/dL (3.4-4.8); Alkaline Phosphatase 261 U/L (40-110); Anion Gap 13 mmol/L (10-20); BUN (Urea Nitrogen) 26 mg/dL (9.8-20.1); CK (CPK) 114 U/L (29-168); Calc. Creatinine Clearance 0 mL/min (70-130); Calcium 8.5 mg/dL (7.8-10.44); Carbon Dioxide 18 mmol/L (23-31); Chloride 105 mmol/L (98-107); Estimated GFR-MDRD 25; Globulin 4.4 g/dL (2.4-3.5); Glucose 168 mg/dL (80-115); Lipase 181 U/L (8-78); Magnesium 1.7 mg/dL (1.6-2.6); Potassium 3.6 mmol/L (3.5-5.1); Protein, Total 6.7 g/dL (6.0-8.3); Sodium 132 mmol/L (136-145)
[2019-09-15 14:27] LABS: Bilirubin, Total 30.7 mg/dL (0.2-1.2)
[2019-09-15 15:20] LABS: Bilirubin Large (Negative); Blood, Urine Trace (Negative); Glucose, Urine (Dipstick) Negative (Negative); Leukocyte Negative (Negative); Nitrite Negative (Negative); Protein, Urine (Dipstick) Negative (Neg-Trace)
[2019-09-15 15:23] LABS: Clarity Clear (Clear)
[2019-09-15 15:29] LABS: RBC/HPF 0-3 HPF (0-3); Squamous Epithelial 0-3 HPF (0-3); WBC/HPF 0-3 HPF (0-3)
[2019-09-15 15:36] LABS: Bacteria/HPF 1+ HPF (None Seen)
--- NOTE | 2019-09-15 18:35 | PDOC.HHP ---
Hospitalist HPI - History of Present Illness yellow skin and eyes, confusion History of Present Illness: 64yo F w/ MHx of chronic hepatitis C infection status post treatment, hypertension, abdominal aortic aneurysm, cardiac aneurysm, gastric ulcer with H pylori status post treatment, GERD, and alcoholism who was brought by family for confusion and worsening yellow skin. Patient was discharged five days ago after having a similar presentation and acute alcoholic hepatitis. Patient's son , who is MPOA per son and father at bedside, took her to his home and was initially doing well, however, on the second day after discharge, remained immobile and barely ate or drank, and started having audio and visual hallucinations. Per son, adherent to all medications including lactulose, however, had more than five daily bowel movements. On encounter, lying comfortbaly in bed and appears confused. Has no complaints. Review of systems was based on son's report considering he has been with her continuously since discharge. Son endorses progressively worsening confusion, yellowing of skin, hallucinations, and reduced oral intake. He denies her reporting headaches, fevers, chills, night sweats, pleuritic pain, shortness of breath, worsening cough or sputum production, abdominal pain, melena, hematochezia, difficulty urinating, increased urinary frequency, high protein diet, alcohol consumption since recent discharge. ED Course: In the ED, found to be confused, jaundiced; ammonia elevated and CAITLYN, so was admitted to the medical floor. 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) - Past Surgical History Past Surgical History: reports: Other (knee replacement) - Social History Alcohol: reports: Heavy (one quart of alcohol daily for one year) Drugs: reports: marijuana (former marijuana user, not in the past month) Occupation: disabled - Exam General Appearance: awake alert, ill appearing General - other findings: morbidly obese Eye: scleral icterus ENT: normocephalic atraumatic, dry oral mucosa Neck: no JVD Heart: RRR, no murmur, no gallops, no rubs Respiratory: CTAB, no wheezes, no rales, no ronchi Gastrointestinal: soft, non-tender, non-distended, normal bowel sounds Extremities - other findings: trace b/l pretibial pitting edema Skin - other findings: jaundice Neurological - other findings: patient confused and doesn't cooperate with neurologic exam Psychiatric: oriented to person, oriented to place, flat affect. negative: oriented to time Hospitalist Results - Labs Result Diagrams: 09/15/19 13:33 09/15/19 13:33 Lab results: WBC 14.0 thou/uL (4.8-10.8) H 09/15/19 13:33 Hgb 10.7 g/dL (12.0-16.0) L 09/15/19 13:33 Hct 33.1 % (36.0-47.0) L 09/15/19 13:33 MCV 105.0 fL (78.0-98.0) H 09/15/19 13:33 Plt Count 118 thou/uL (130-400) L 09/15/19 13:33 Neutrophils % 77.0 % (42.0-75.0) H 09/15/19 13:33 Sodium 132 mmol/L (136-145) L 09/15/19 13:33 Potassium 3.6 mmol/L (3.5-5.1) 09/15/19 13:33 Chloride 105 mmol/L (98-107) 09/15/19 13:33 Carbon Dioxide 18 mmol/L (23-31) L 09/15/19 13:33 BUN 26 mg/dL (9.8-20.1) H 09/15/19 13:33 Creatinine 2.01 mg/dL (0.6-1.1) H 09/15/19 13:33 Glucose 168 mg/dL (80-115) H 09/15/19 13:33 Calcium 8.5 mg/dL (7.8-10.44) 09/15/19 13:33 Total Bilirubin 30.7 mg/dL (0.2-1.2) H 09/15/19 13:33 AST 128 U/L (5-34) H 09/15/19 13:33 ALT 76 U/L (8-55) H 09/15/19 13:33 Alkaline Phosphatase 261 U/L (40-110) H 09/15/19 13:33 Ammonia 94 umol/L (18-72) H 09/15/19 13:33 Creatine Kinase 114 U/L (29-168) 09/15/19 13:33 Serum Total Protein 6.7 g/dL (6.0-8.3) 09/15/19 13:33 Albumin 2.3 g/dL (3.4-4.8) L 09/15/19 13:33 Lipase 181 U/L (8-78) H 09/15/19 13:33 Urine Ketones Negative mg/dL (Negative) 09/15/19 15:03 Urine Blood Trace (Negative) A 09/15/19 15:03 Urine Nitrite Negative (Negative) 09/15/19 15:03 Ur Leukocyte Esterase Negative (Negative) 09/15/19 15:03 Urine RBC 0-3 HPF (0-3) 09/15/19 15:03 Urine WBC 0-3 HPF (0-3) 09/15/19 15:03 Ur Squamous Epith Cells 0-3 HPF (0-3) 09/15/19 15:03 Urine Bacteria 1+ HPF (None Seen) A 09/15/19 15:03 - EKG Interpretation EKG: sinus rhythm with no signs of acute ischemia Hospitalist H&P A/P - Plan Plan: #hepatic encephalopathy C-I #hyperbilirubinemia #transaminitis #coagulopathy #thrombocytopenia -likely has cirrhosis based on presentation, labs, imaging findins -MELD score 34; not candidate for liver transplant -flare likely due to dehydration -IVF with fluid restriction 1.5L / 24h -lactulose, titrate to 3 bowel movements / 24 hours #CAITLYN -Cr 2; baseline 0.9-1.3 -likely prerenal -gentle IVF with fluid restriction 1.5L / 24h #nonanion gap metabolic acidosis -likely due to lactulose induced diarrhea #recent alcoholic hepatitis -on previous admission; was on steroid taper -maddrey score > 32 however GI recommended to not treat with steroids -will hold steroids #abdominal aortic aneurysm -minimally enlarged on recent scan (4.6cm compared to 4.3cm 10/2018) -used to be on beta angelica but recently stopped by primary care phsyician -reported cardiac aneurysm as well; however, recent echo has no such report -will continue to hold beta angelica considering limited evidence regarding AAA progression limitation and hepatic impairment, general poor prognosis Disposition/PPI Full code DVT PPx: heparin subq GI PPx: no indication Per son and at bedside, son is caregiver and medical decision maker; per Son attempting to obtain MPOA in order to possibly place mother in assisted
[2019-09-15] MEDS ORDERED: Ondansetron ODT 4 MG TAB PO PRN (20:00)
[2019-09-15] MEDS: Sodium Chloride 0.9% 1,000 ML IV SCH (20:58)
[2019-09-15] MEDS: hydrOXYzine 25 MG TAB PO PRN (20:59)
[2019-09-15] MEDS: Heparin 5,000 UNITS/ML VIAL SC SCH (21:00)
[2019-09-15 21:29] VITALS: BMI 34.4
[2019-09-16] MEDS: Folic Acid 1 MG TAB PO SCH (08:29)
[2019-09-16] MEDS: Thiamine 100 MG TAB PO SCH (08:29)
[2019-09-16] MEDS: Heparin 5,000 UNITS/ML VIAL SC SCH ×3 (08:30→20:48)
[2019-09-16 09:48] LABS: #Lymphocytes 1.9 thou/uL (1.20-3.40); #Monocytes 1.4 thou/uL (0.11-0.59); #Neutrophils 12.3 thou/uL (1.40-6.50); %Basophils 0.1 % (0.0-1.0); %Eosinophils 0.2 % (0.0-10.0); %Lymphocytes 11.9 % (21.0-51.0); %Monocytes 8.9 % (0.0-10.0); Hemoglobin 11.2 g/dL (12.0-16.0); Mean Corpuscular HGB CONC 31.9 g/dL (32.0-36.0); Mean Corpuscular Hemoglobin 33.7 pg (27.0-31.0); Mean Platelet Volume 9.4 fL (7.4-10.4); Platelet Count 126 thou/uL (130-400); RBC Distribution Width 16.2 % (11.5-14.5); Red Blood Cell (RBC) Count 3.32 mill/uL (4.20-5.40); White Blood Cell (WBC) Count 15.6 thou/uL (4.8-10.8)
[2019-09-16 10:21] LABS: ALT (SGPT) 79 U/L (8-55); AST (SGOT) 119 U/L (5-34); Albumin 2.3 g/dL (3.4-4.8); Alkaline Phosphatase 258 U/L (40-110); Anion Gap 12 mmol/L (10-20); BUN (Urea Nitrogen) 25 mg/dL (9.8-20.1); Bilirubin, Total 29.5 mg/dL (0.2-1.2); Calc. Creatinine Clearance 47 mL/min (70-130); Calcium 8.3 mg/dL (7.8-10.44); Carbon Dioxide 19 mmol/L (23-31); Chloride 107 mmol/L (98-107); Estimated GFR-MDRD 28; Globulin 4.4 g/dL (2.4-3.5); Glucose 107 mg/dL (80-115); Potassium 3.6 mmol/L (3.5-5.1); Protein, Total 6.7 g/dL (6.0-8.3); Sodium 134 mmol/L (136-145)
[2019-09-16] MEDS: Sodium Chloride 0.9% 1,000 ML IV SCH ×2 (17:01→20:48)
[2019-09-16] MEDS: hydrOXYzine 25 MG TAB PO PRN (20:48)
--- NOTE | 2019-09-16 20:57 | PDOC.HOSPP ---
- Subjective Encounter Date: 09/16/19 Encounter Time: 13:00 Subjective: overnight, continues to be confused. This afternoon, midly confused but appears to be able to cooperate and answer questions but not cooperative. - Objective Vital Signs & Weight: Vital Signs (12 hours) Temp Pulse Resp BP BP Pulse Ox 09/16/19 19:19 98.2 F 65 18 116/74 95 09/16/19 11:42 98.2 F 68 16 137/75 96 Weight Weight 213 lb 13.574 oz I&O: 09/15/19 09/16/19 09/17/19 06:59 06:59 06:59 Intake Total 600 Balance 600 Result Diagrams: 09/16/19 09:19 09/16/19 09:19 Hospitalist ROS - Review of Systems ROS unobtainable: due to mental status - Medication Medications: Active Medications Generic Name Dose Route Start Last Admin Trade Name Freq PRN Reason Stop Dose Admin Duloxetine HCl 20 mg 09/15/19 21:00 09/16/19 20:48 Cymbalta PO 20 mg BID JULIA Administration Folic Acid 1 mg 09/16/19 09:00 09/16/19 08:29 Folvite PO 1 mg DAILY JULIA Administration Heparin Sodium (Porcine) 5,000 units 09/15/19 21:00 09/16/19 20:48 Heparin SC 5,000 units TID JULIA Administration Hydroxyzine HCl 25 mg 09/15/19 20:00 09/16/19 20:48 Atarax PO 25 mg Q4H PRN Administration Anxiety/Agitation Sodium Chloride 1,000 mls @ 50 mls/hr 09/15/19 18:15 09/16/19 20:48 Normal Saline 0.9% IV 1,000 mls .Q20H JULIA Administration Lactulose 10 gm 09/15/19 21:00 09/16/19 20:48 Lactulose PO 10 gm TID JULIA Administration Thiamine HCl 100 mg 09/16/19 09:00 09/16/19 08:29 Thiamine PO 100 mg DAILY JULIA Administration - Exam General Appearance: awake alert, ill appearing Eye: scleral icterus Heart: RRR, no murmur, no gallops, no rubs Respiratory: CTAB, no wheezes, no rales, no ronchi Gastrointestinal: soft, non-tender, non-distended, normal bowel sounds Extremities - other findings: diffuse edema Skin - other findings: diffuse jaundice Neurological - other findings: not cooperative with exam Psychiatric: oriented to person, oriented to place. negative: oriented to time Hosp A/P - Plan DVT proph w/lovenox #hepatic encephalopathy C-I #hyperbilirubinemia #transaminitis #coagulopathy #thrombocytopenia -likely has cirrhosis based on presentation, labs, imaging findins -MELD score 34; not candidate for liver transplant -flare likely due to dehydration -IVF with fluid restriction 1.5L / 24h -lactulose, titrate to 3 bowel movements / 24 hours; requesting nursing staff to follow bowel movements and titrate -if doesn't improve by 09/16, will add rifaximin -discussed poor prognosis with son and #CAITLYN -improving (09/15) -continue gentle IVF #nonanion gap metabolic acidosis -likely due to lactulose induced diarrhea #recent alcoholic hepatitis -on previous admission; was on steroid taper -maddrey score > 32 however GI recommended to not treat with steroids -will hold steroids #abdominal aortic aneurysm -minimally enlarged on recent scan (4.6cm compared to 4.3cm 10/2018) -used to be on beta angelica but recently stopped by primary care phsyician -reported cardiac aneurysm as well; however, recent echo has no such report -will continue to hold beta angelica considering limited evidence regarding AAA progression limitation and hepatic impairment, general poor prognosis Disposition/PPI PRTL cardiac only per son's and 's request based on patients prior wishes DVT PPx: heparin subq GI PPx: no indication Per son and at bedside, son is caregiver and medical decision maker; per Son attempting to obtain MPOA in order to possibly place mother in assisted
[2019-09-17 06:29] LABS: #Eosinphils 0.1 thou/uL (0.0-0.7); #Lymphocytes 1.1 thou/uL (1.20-3.40); #Monocytes 1.1 thou/uL (0.11-0.59); #Neutrophils 8.5 thou/uL (1.40-6.50); %Basophils 0.1 % (0.0-1.0); %Eosinophils 0.6 % (0.0-10.0); %Lymphocytes 9.9 % (21.0-51.0); %Monocytes 9.9 % (0.0-10.0); %Neutrophils 79.5 % (42.0-75.0); Mean Corpuscular HGB CONC 32.5 g/dL (32.0-36.0); Mean Platelet Volume 9.6 fL (7.4-10.4); Platelet Count 91 thou/uL (130-400); RBC Distribution Width 16.1 % (11.5-14.5); Red Blood Cell (RBC) Count 2.94 mill/uL (4.20-5.40); White Blood Cell (WBC) Count 10.7 thou/uL (4.8-10.8)
[2019-09-17 07:09] LABS: Anion Gap 11 mmol/L (10-20); BUN (Urea Nitrogen) 26 mg/dL (9.8-20.1); Calc. Creatinine Clearance 53 mL/min (70-130); Calcium 7.8 mg/dL (7.8-10.44); Carbon Dioxide 19 mmol/L (23-31); Chloride 110 mmol/L (98-107); Estimated GFR-MDRD 32; Glucose 104 mg/dL (80-115); Magnesium 1.6 mg/dL (1.6-2.6); Potassium 3.5 mmol/L (3.5-5.1); Sodium 136 mmol/L (136-145)
[2019-09-17] MEDS: Folic Acid 1 MG TAB PO SCH (08:06)
[2019-09-17] MEDS: Thiamine 100 MG TAB PO SCH (08:06)
[2019-09-17] MEDS: Heparin 5,000 UNITS/ML VIAL SC SCH ×3 (08:07→20:37)
[2019-09-17] MEDS: hydrOXYzine 25 MG TAB PO PRN (20:36)
--- NOTE | 2019-09-17 22:23 | PDOC.HOSPP ---
- Subjective Encounter Date: 09/17/19 Encounter Time: 11:00 Subjective: overnight, continues to be agitated and not cooperative. This morning, spent significant time with patient and family explaining to patient regarding her condition and the general prognosis. The patient replied that she wasn't aware that she had significant liver disease but she now understands. Appears less confused than yesterday, jaundice somewhat improved. - Objective Vital Signs & Weight: Vital Signs (12 hours) Temp Pulse Resp BP Pulse Ox 09/17/19 19:27 98.3 F 92 20 122/67 94 L 09/17/19 15:28 98.3 F 78 18 112/68 95 09/17/19 10:52 98.4 F 76 18 112/67 95 Weight Admit Weight 213 lb 13.574 oz Weight 213 lb 13.574 oz I&O: 09/16/19 09/17/19 09/18/19 06:59 06:59 06:59 Intake Total 600 650 Balance 600 650 Result Diagrams: 09/17/19 05:37 09/17/19 05:37 Hospitalist ROS - Review of Systems Constitutional: denies: fever, chills, sweats, weakness, malaise, other Respiratory: denies: cough, dry, shortness of breath, hemoptysis, SOB with excertion, pleuritic pain, sputum, wheezing, other Cardiovascular: denies: chest pain, palpitations, orthopnea, paroxysmal noc. dyspnea, edema, light headedness, other Gastrointestinal: reports: diarrhea. denies: nausea, vomiting, abdominal pain, constipation, melena, hematochezia, other Genitourinary: denies: dysuria, frequency, incontinence, hematuria, retention, other - Medication Medications: Active Medications Generic Name Dose Route Start Last Admin Trade Name Freq PRN Reason Stop Dose Admin Duloxetine HCl 20 mg 09/15/19 21:00 09/17/19 20:28 Cymbalta PO 20 mg BID [facility] Administration Folic Acid 1 mg 09/16/19 09:00 09/17/19 08:06 Folvite PO 1 mg DAILY JULIA Administration Heparin Sodium (Porcine) 5,000 units 09/15/19 21:00 09/17/19 20:37 Heparin SC Not Given TID [facility] Hydroxyzine HCl 25 mg 09/15/19 20:00 09/17/19 20:36 Atarax PO 25 mg Q4H PRN Administration Anxiety/Agitation Sodium Chloride 1,000 mls @ 50 mls/hr 09/15/19 18:15 09/16/19 20:48 Normal Saline 0.9% IV 1,000 mls .Q20H JULIA Administration Lactulose 10 gm 09/15/19 21:00 09/17/19 20:37 Lactulose PO Not Given TID JULIA Thiamine HCl 100 mg 09/16/19 09:00 09/17/19 08:06 Thiamine PO 100 mg DAILY JULIA Administration - Exam General Appearance: awake alert, ill appearing Eye: anicteric sclera Neck: no JVD Heart: RRR, no murmur, no gallops, no rubs Respiratory: CTAB, no wheezes, no rales, no ronchi Gastrointestinal: soft, non-tender, non-distended, normal bowel sounds Extremities: 2+ LE edema Musculoskeletal: normal tone, normal strength Psychiatric: oriented to person, oriented to place. negative: oriented to time Psychiatric - other findings: noncooperative Hosp A/P - Plan #hepatic encephalopathy C-I #hyperbilirubinemia #transaminitis #coagulopathy #thrombocytopenia -9 BMs overnight, held lactulose -jaundice, confusion improved (09/16) -discussed in length with patient her condition and prognosis -palliative care consulted #CAITLYN -improving (09/15) -continue gentle IVF #nonanion gap metabolic acidosis -likely due to lactulose induced diarrhea #recent alcoholic hepatitis -on previous admission; was on steroid taper -maddrey score > 32 however GI recommended to not treat with steroids -will hold steroids #abdominal aortic aneurysm -minimally enlarged on recent scan (4.6cm compared to 4.3cm 10/2018) -used to be on beta angelica but recently stopped by primary care phsyician -reported cardiac aneurysm as well; however, recent echo has no such report -will continue to hold beta angelica considering limited evidence regarding AAA progression limitation and hepatic impairment, general poor prognosis Disposition/PPI PRTL cardiac only per son's and 's request based on patients prior wishes DVT PPx: heparin subq GI PPx: no indication Per son and at bedside, son is caregiver and medical decision maker; per Son attempting to obtain MPOA in order to possibly place mother in fpc; patient has poor prognosis, requested palliative care to discuss goals of care
[2019-09-18] MEDS: Sodium Chloride 0.9% 1,000 ML IV SCH (03:41)
[2019-09-18] MEDS: Thiamine 100 MG TAB PO SCH (08:49)
[2019-09-18] MEDS: hydrOXYzine 25 MG TAB PO PRN (08:49)
[2019-09-18] MEDS: Heparin 5,000 UNITS/ML VIAL SC SCH ×3 (08:49→20:02)
[2019-09-18] MEDS: Folic Acid 1 MG TAB PO SCH (08:49)
--- NOTE | 2019-09-18 09:15 | PDOC.PALCO ---
Palliative Care Consult - Consult Details Requesting Physician: Dr Ray Reason for Consult: goals of care, complex decision-making - Pertinent HPI 64 year old female who resides in private setting, previously with partner, son is primary caregiver. She has no living relatives other than her son Suamn who is at bedside. Chronic Hep B with alcoholism, significant cardiovascular history including abdominal aneurysm. Limited mobility, increase need fo rassistance for ADL. Became weaker at home setting, was brought to the emergency room for increasing confusion, and yellowing of skin. Admitted for evaluation and medical management. - Pertinent PMH Hep C, Abdominal Aneurysm, gastric ulcer, H pylori, Alcoholism - Social History Smoking Status: Unknown if ever smoked Alcohol Use: heavy, daily Drug Use History: marijuana (But not in past month as per records and son) Living Situation: other (Lives independently with partner and recently son) - Medications MAR Reviewed: Yes - Allergies Allergies/Adverse Reactions: Allergies Allergy/AdvReac Type Severity Reaction Status Date / Time No Known Drug Allergies Allergy Verified 09/05/19 13:18 - Subjective Awake, able to carry on short conversations with confusion. Son at bedside. In ROS patient denies complaints. Son reports poor appetite, confusion, intermittent abdominal pain. - ROS Non Response: due to mental status - Objective Vital Signs: Vital Signs - Most Recent Temp Pulse Resp BP Pulse Ox 98.4 F 87 18 122/58 L 98 09/18/19 07:53 09/18/19 07:53 09/18/19 07:53 09/18/19 07:53 09/18/19 07:53 Palliative Performance Scale: 30 - Physical Exam Constitutional: encephalitic, ill appearing HEENT: EOMI, scleral icterus Respiratory: clear to auscultation bilateral, no wheezing Cardiovascular: RRR Gastrointestinal: continent Deviation from normal: distended, mild tenderness with palpation Genitourinary: continent Musculoskeletal: pulses present Neurology: moves all 4 limbs, no focal deficits Skin: cap refill <2 seconds, fragile Deviation from normal: Mottled lower ext at feet, icteric Deviation from normal: Oriented to self place, confusion. Son reports intermittant hallucinations - Problem List (1) Palliative care encounter Code(s): Z51.5 - ENCOUNTER FOR PALLIATIVE CARE Current Visit: Yes Status: Acute (2) Physical deconditioning Code(s): R53.81 - OTHER MALAISE Current Visit: Yes Status: Acute (3) Alcohol abuse Code(s): F10.10 - ALCOHOL ABUSE, UNCOMPLICATED Current Visit: No Status: Acute (4) Alcoholic hepatitis Code(s): K70.10 - ALCOHOLIC HEPATITIS WITHOUT ASCITES Current Visit: No Status: Acute (5) Coagulopathy Current Visit: No Status: Acute (6) Hepatitis C Code(s): B19.20 - UNSPECIFIED VIRAL HEPATITIS C WITHOUT HEPATIC COMA Current Visit: No Status: Acute (7) Liver failure Current Visit: No Status: Acute (8) Transaminitis Code(s): R74.0 - NONSPEC ELEV OF LEVELS OF TRANSAMNS & LACTIC ACID DEHYDRGNSE Current Visit: No Status: Acute - Plan/Recommendations Plan: Introduced Palliative Care to Patient and Son. Discussed transition of resuscitation status to DNAR, son is going to visit with his mom and we will readdress this afternoon. He believes DNAR is best. Discussed Goal of care with disease trajectory toward decline. Specifically indication of MELD score in relation to liver disease and associated complications, and added morbidity of aneurysm. 1) Discussed [facility] but will not be able to have hospice initially. Consideration for discharge to [facility] with "comfort measures" and facility not to transfer patient but keep her comfortable. 2) Home to sons home with hospice and comfort, sons pause is he works and not comfortable leaving his mother alone. He is going to reach out to support system to see what resources they can identify as far as help. Palliative Care will follow up to further address resuscitation status, and assist son in relation to further questions relating discharge that promotes comfort for patient. [75] minutes spent on this encounter with >50% of the time in counseling and coordination of care. Thank you for this very appropriate consult.
--- NOTE | 2019-09-18 22:59 | PDOC.HOSPP ---
- Subjective Encounter Date: 09/18/19 Encounter Time: 13:00 Subjective: no overnight events. This afternoon, feeling better, improved jaundice and confusion. Has no complaints. - Objective Vital Signs & Weight: Vital Signs (12 hours) Temp Pulse Resp BP Pulse Ox 09/18/19 19:32 97.8 F 91 16 145/79 H 97 09/18/19 19:15 97 Weight Admit Weight 213 lb 13.574 oz Weight 213 lb 13.574 oz I&O: 09/17/19 09/18/19 09/19/19 06:59 06:59 06:59 Intake Total 650 1200 Balance 650 1200 Result Diagrams: 09/17/19 05:37 09/17/19 05:37 Hospitalist ROS - Review of Systems Constitutional: denies: fever, chills, sweats, weakness, malaise, other Respiratory: denies: cough, dry, shortness of breath, hemoptysis, SOB with excertion, pleuritic pain, sputum, wheezing, other Cardiovascular: denies: chest pain, palpitations, orthopnea, paroxysmal noc. dyspnea, edema, light headedness, other Gastrointestinal: denies: nausea, vomiting, abdominal pain, diarrhea, constipation, melena, hematochezia, other Genitourinary: denies: dysuria, frequency, incontinence, hematuria, retention, other - Medication Medications: Active Medications Generic Name Dose Route Start Last Admin Trade Name Freq PRN Reason Stop Dose Admin Duloxetine HCl 20 mg 09/15/19 21:00 09/18/19 20:01 Cymbalta PO 20 mg BID JULIA Administration Folic Acid 1 mg 09/16/19 09:00 09/18/19 08:49 Folvite PO 1 mg DAILY JULIA Administration Heparin Sodium (Porcine) 5,000 units 09/15/19 21:00 09/18/19 20:02 Heparin SC Not Given TID JULIA Hydroxyzine HCl 25 mg 09/15/19 20:00 09/18/19 08:49 Atarax PO 25 mg Q4H PRN Administration Anxiety/Agitation Sodium Chloride 1,000 mls @ 50 mls/hr 09/15/19 18:15 09/18/19 03:41 Normal Saline 0.9% IV 1,000 mls .Q20H JULIA Administration Lactulose 10 gm 09/15/19 21:00 09/18/19 20:01 Lactulose PO 10 gm TID JULIA Administration Thiamine HCl 100 mg 09/16/19 09:00 09/18/19 08:49 Thiamine PO 100 mg DAILY JULIA Administration - Exam General Appearance: NAD, awake alert Eye: scleral icterus Neck: no JVD Heart: RRR, no murmur, no gallops, no rubs Respiratory: CTAB, no wheezes, no rales, no ronchi Gastrointestinal: soft, non-tender, non-distended, normal bowel sounds Extremities - other findings: anisarca Skin - other findings: jaundice, improved Psychiatric: normal affect, normal behavior, oriented to person, oriented to place. negative: oriented to time Psychiatric - other findings: calmer than before Hosp A/P - Plan #hepatic encephalopathy C-I #hyperbilirubinemia #transaminitis #coagulopathy #thrombocytopenia -jaundice, confusion improved (09/17) -discussed in length with patient her condition and prognosis -Appreciate palliative recs; pending further discussions regarding placement options. -continue lactulose #CAITLYN -improving (09/17) -continue gentle IVF #nonanion gap metabolic acidosis -likely due to lactulose induced diarrhea #recent alcoholic hepatitis -on previous admission; was on steroid taper -maddrey score > 32 however GI recommended to not treat with steroids -will hold steroids #abdominal aortic aneurysm -minimally enlarged on recent scan (4.6cm compared to 4.3cm 10/2018) -used to be on beta angelica but recently stopped by primary care phsyician -reported cardiac aneurysm as well; however, recent echo has no such report -will continue to hold beta angelica considering limited evidence regarding AAA progression limitation and hepatic impairment, general poor prognosis Disposition/PPI PRTL cardiac only per son's and 's request based on patients prior wishes DVT PPx: heparin subq GI PPx: no indication patient has poor prognosis; Appreciate palliative insurance healthcare representative in addressing goals of care and disposition.
[2019-09-19] MEDS: Sodium Chloride 0.9% 1,000 ML IV SCH ×2 (02:15→20:28)
[2019-09-19 06:39] LABS: Anion Gap 11 mmol/L (10-20); BUN (Urea Nitrogen) 32 mg/dL (9.8-20.1); Calc. Creatinine Clearance 47 mL/min (70-130); Calcium 8.1 mg/dL (7.8-10.44); Carbon Dioxide 19 mmol/L (23-31); Chloride 108 mmol/L (98-107); Estimated GFR-MDRD 28; Glucose 109 mg/dL (80-115); Magnesium 1.6 mg/dL (1.6-2.6); Potassium 3.2 mmol/L (3.5-5.1); Sodium 135 mmol/L (136-145)
[2019-09-19] MEDS ORDERED: Potassium Chloride 20 MEQ TAB PO SCH (08:16)
[2019-09-19] MEDS ORDERED: Magnesium Oxide 400 MG TAB PO SCH (08:30)
[2019-09-19] MEDS: Folic Acid 1 MG TAB PO SCH (09:15)
[2019-09-19] MEDS: Heparin 5,000 UNITS/ML VIAL SC SCH ×3 (09:15→20:27)
[2019-09-19] MEDS: Thiamine 100 MG TAB PO SCH (09:15)
--- NOTE | 2019-09-19 22:03 | PDOC.HOSPP ---
- Subjective Encounter Date: 09/19/19 Encounter Time: 13:00 Subjective: no overnight events. Per nurse, son claimed that patient is at baseline in terms of general well being and alertness. Has no complaints. Pending hospice evaluation - Objective Vital Signs & Weight: Vital Signs (12 hours) Temp Pulse Resp BP Pulse Ox 09/19/19 20:00 98.0 F 98 16 142/81 H 92 L Weight Admit Weight 213 lb 13.574 oz Weight 213 lb 13.574 oz I&O: 09/18/19 09/19/19 09/20/19 06:59 06:59 06:59 Intake Total 1200 Balance 1200 Result Diagrams: 09/17/19 05:37 09/19/19 05:53 Hospitalist ROS - Review of Systems Constitutional: denies: fever, chills, sweats, weakness, malaise, other Respiratory: denies: cough, dry, shortness of breath, hemoptysis, SOB with excertion, pleuritic pain, sputum, wheezing, other Cardiovascular: denies: chest pain, palpitations, orthopnea, paroxysmal noc. dyspnea, edema, light headedness, other Gastrointestinal: denies: nausea, vomiting, abdominal pain, diarrhea, constipation, melena, hematochezia, other Genitourinary: denies: dysuria, frequency, incontinence, hematuria, retention, other - Medication Medications: Active Medications Generic Name Dose Route Start Last Admin Trade Name Freq PRN Reason Stop Dose Admin Duloxetine HCl 20 mg 09/15/19 21:00 09/19/19 20:27 Cymbalta PO 20 mg BID JULIA Administration Folic Acid 1 mg 09/16/19 09:00 09/19/19 09:15 Folvite PO 1 mg DAILY JULIA Administration Heparin Sodium (Porcine) 5,000 units 09/15/19 21:00 09/19/19 20:27 Heparin SC Not Given TID JULIA Hydroxyzine HCl 25 mg 09/15/19 20:00 09/18/19 08:49 Atarax PO 25 mg Q4H PRN Administration Anxiety/Agitation Sodium Chloride 1,000 mls @ 50 mls/hr 09/15/19 18:15 09/19/19 20:28 Normal Saline 0.9% IV Not Given .Q20H JULIA Lactulose 10 gm 09/15/19 21:00 09/19/19 20:28 Lactulose PO Not Given TID JULIA Thiamine HCl 100 mg 09/16/19 09:00 09/19/19 09:15 Thiamine PO 100 mg DAILY JULIA Administration - Exam General Appearance: NAD, awake alert Eye: scleral icterus (improved) Heart: RRR, no murmur, no gallops, no rubs, normal peripheral pulses Respiratory: CTAB, no wheezes, no rales, no ronchi, normal chest expansion, no tachypnea, normal percussion Gastrointestinal: soft, non-tender, non-distended, normal bowel sounds Extremities - other findings: diffuse edema Skin - other findings: jaundice, improved Psychiatric: oriented to person, oriented to place. negative: oriented to time Hosp A/P - Plan #hepatic encephalopathy C-I #hyperbilirubinemia #transaminitis #coagulopathy #thrombocytopenia -at baseline (09/18) -pending hospice evaluation -Appreciate palliative recs -continue lactulose #CAITLYN -may be new baseline -patient pulled out IV -encourage fluid intake ~ 1.5L per 24 hours #nonanion gap metabolic acidosis -likely due to lactulose induced diarrhea #recent alcoholic hepatitis -on previous admission; was on steroid taper -maddrey score > 32 however GI recommended to not treat with steroids -will hold steroids #abdominal aortic aneurysm -minimally enlarged on recent scan (4.6cm compared to 4.3cm 10/2018) -used to be on beta angelica but recently stopped by primary care phsyician -reported cardiac aneurysm as well; however, recent echo has no such report -will continue to hold beta angelica considering limited evidence regarding AAA progression limitation and hepatic impairment, general poor prognosis Disposition/PPI PRTL cardiac only per son's request based on patients prior wishes DVT PPx: heparin subq GI PPx: no indication patient has poor prognosis; Appreciate palliative career consultant in addressing goals of care and disposition.
[2019-09-20] MEDS ORDERED: Lidocaine 2% Viscous Solution 10 ML, Aluminum & Magnesium Hydroxide 30 ML SSW SCH (00:15)
[2019-09-20 06:23] LABS: Anion Gap 10 mmol/L (10-20); BUN (Urea Nitrogen) 31 mg/dL (9.8-20.1); Calc. Creatinine Clearance 47 mL/min (70-130); Calcium 8.2 mg/dL (7.8-10.44); Carbon Dioxide 20 mmol/L (23-31); Chloride 107 mmol/L (98-107); Estimated GFR-MDRD 28; Glucose 150 mg/dL (80-115); Magnesium 1.9 mg/dL (1.6-2.6); Potassium 3.6 mmol/L (3.5-5.1); Sodium 133 mmol/L (136-145)
[2019-09-20] MEDS: Sodium Chloride 0.9% 1,000 ML IV SCH (07:44)
[2019-09-20] MEDS: Heparin 5,000 UNITS/ML VIAL SC SCH (07:45)
[2019-09-20] MEDS: Folic Acid 1 MG TAB PO SCH (08:26)
[2019-09-20] MEDS: Thiamine 100 MG TAB PO SCH (08:27)
[2019-09-20 08:31] VITALS: BP 127/74; TEMP 98.4
--- NOTE | 2019-09-21 14:09 | DIS ---
DATE OF ADMISSION: 09/15/2019 DATE OF DISCHARGE: 09/20/2019 HOSPITAL COURSE: Ms. Looney is a 64-year-old female with a medical history of alcoholic hepatitis, portal hypertension, and hepatic encephalopathy, who presented for increased drowsiness. Per the patient's son, the patient had multiple episodes of diarrhea and a few days prior to admission was taking lactulose. The patient was found to be dehydrated and was diagnosed with hepatic encephalopathy due to dehydration. 1. Hepatic encephalopathy, hyperbilirubinemia, hepatitis, coagulopathy, thrombocytopenia. a. MELD score is 34. Even though, there are no imaging findings that are diagnostic of cirrhosis, the patient has had signs, symptoms, and sequelae of cirrhosis. b. Even though, the patient improved and returned to recent baseline during admission, the son, who is the medical power of contracts attorney claimed that he could no longer take care of his mother due to increased confusion and inability to take care of herself. c. Hospice and Palliative teams were consulted and it was agreed that the best course would be to admit the patient to Hospice considering her poor prognosis. 2. CAITLYN. The patient came in with a creatinine of around 2. Her baseline earlier the month was lower. a. The patient's creatinine improved to 1.6 prior to discharge. b. Most likely due to dehydration. c. The patient was advised to increase fluid intake to 1.5 L per 24 hours, to balance between the hydration-induced hepatic encephalopathy and CAITLYN. 3. Recent alcoholic hepatitis. a. The patient was previously started on steroids. However, GI recommended to not treat with steroids due to lack of evidence regarding improved survival. 4. Abdominal aortic aneurysm. a. The aneurysm was minimally enlarged on recent scan. b. The patient used to be on a beta-angelica, but recently stopped by primary care physician. c. There is no evidence that beta-blockers limit progression of abdominal aortic aneurysm. d. Continued to hold beta-angelica. On the day of discharge, the patient was hemodynamically stable and back at her baseline mental state. PHYSICAL EXAMINATION: GENERAL: She was in no apparent distress. Awake and alert. HEENT: Eye exam, sclerae icterus, but improved compared to admission. HEART: Regular rate and rhythm. No murmur. No gallops. No rubs. Normal peripheral pulses. RESPIRATORY: Clear to auscultation bilaterally. No wheezes, no rales, no rhonchi. Normal chest expansion. No tachypnea. GI: Soft, nontender, nondistended. Normal bowel sounds. EXTREMITIES: Diffuse edema. SKIN: Diffuse jaundice, but significantly improved compared to admission. PSYCHIATRIC: Oriented to person and to place, but not to time. Job ID: [id number] MTDD
== END 2019-09-20 13:49 | disposition hospice, inpatient (51) | DRG 442 ==
LOC: ERS 12:54 → T4-B 16:26
PROVIDERS: ADMIT Internal Medicine; ATTEND Internal Medicine
DX: K72.90 Hepatic failure, unspecified without coma (principal); N17.9 Acute kidney failure, unspecified; D68.9 Coagulation defect, unspecified; E87.2 Acidosis; E86.0 Dehydration; E80.6 Other disorders of bilirubin metabolism; Z51.5 Encounter for palliative care; D69.6 Thrombocytopenia, unspecified; I71.4 Abdominal aortic aneurysm, without rupture; B19.20 Unspecified viral hepatitis C without hepatic coma; K21.9 Gastro-esophageal reflux disease without esophagitis; F10.10 Alcohol abuse, uncomplicated; Z96.659 Presence of unspecified artificial knee joint; K70.10 Alcoholic hepatitis without ascites; E66.01 Morbid (severe) obesity due to excess calories; Z68.34 Body mass index [BMI] 34.0-34.9, adult; K74.60 Unspecified cirrhosis of liver
CPT/HCPCS: 36415; 80048; 80053; 81003; 81015; 82140; 82550; 83690; 83735; 85025; 85610; 85730; 93005; 96360; J1644